=== PATIENT | male | born 1960 | race Caucasian/White ===

== ENCOUNTER 2017-01-08 21:44 | Emergency (ER) | payer OTHER ==
[~2017-01-08] VITALS: Ht 188 cm; Wt 127.5 kg
[~2017-01-08 21:44] MED LIST: ACET1TAB33 PO; ALBU8.5H3 IH; AMOX1TAB61 PO; AZIT250T6 PO; CYCL10TA2 PO; HYDR-79 PO; IBUP800T PO; PRED-220 PO; PRED50TA PO
--- NOTE | 2017-01-08 22:32 | PHYS DOC ---
General Chief Complaint: FLANK PAIN Stated Complaint: LFT FLANK PAIN Time Seen by MD: 21:54 Source: patient Exam Limitations: no limitations Problems: History of Present Illness Initial Comments "I was watching TV sitting on my bed, I slid down and felt pain right here." Pt is 56/M to ED c/o left abdominal pain. Pt states tonight he slid from sitting to lying on his bed, felt twinge/pain just under left anterior costal border. Now no pain at rest but pt c/o severe pain with movement. No falls/trauma/sob/n/v/d, no prearrival treatment. Pt states he doesn't think he can work tomorrow ([employer]) requests note. No other c /o. Timing/Duration: 1-3 hours Severity: severe Modifying Factors: worse with movement, improves with rest Associated Symptoms: other Allergies: Coded Allergies: No Known Drug Allergies (Unverified , 03/20/14) Past Medical History Medical History: COPD Surgical History: appendectomy, other Family History Significant Family History: no pertinent family hx Social History Smoker: quit greater than 1 year Alcohol: none Drugs: none Review of Systems Constitutional: denies chills, denies fever, denies malaise Respiratory: denies cough, denies shortness of breath Cardiovascular: denies chest pain, denies palpitations Gastrointestinal: abdominal paindenies constipation, denies diarrhea, denies nausea, denies vomiting Genitourinary: denies dysuria, denies frequency, denies hematuria Musculoskeletal: denies back pain, denies joint swelling, muscle pain muscle stiffnessdenies neck pain Psychiatric/Neurological: denies headache, denies numbness, denies paresthesia Physical Exam General Appearance: mild distress, obese Ear, Nose, Throat: hearing grossly normal, normal ENT inspection Neck: non-tender, supple Respiratory: normal breath sounds, no respiratory distress Cardiovascular: normal peripheral pulses, regular rate, rhythm Gastrointestinal: soft (ND, point tenderness in musculature just inferior to L ant costal border. TTP resolves when muscle shortened/at rest, sx exacerbated when pt activates abdominal mm as if doing sit up. 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 Pt expressed agreement/ understanding. Departure Time of Disposition: 22:29 Disposition: 01 HOME, SELF-CARE Diagnosis: abdominal muscle strain Condition: GOOD Patient Instructions: Muscle Strain, [id number], RICE - Routine Care for Injuries, [id number] Additional Instructions: Off work tomorrow if needed. RICE, see handout. OTC ibuprofen for baseline pain. A tylenol #3 start pack dispensed to you in ED, take 1-2 every 6 hours with food for severe pain. Rx: cyclobenzaprine Follow up with your doctor in 1-2 weeks if not better. Return to ED with new or changing symptoms. DAINA ROONEY DO Jan 08, 2017 22:31
[2017-01-08] MEDS ORDERED: CYCL10TA2 PO (22:33)
[2017-01-08 22:59] VITALS: BP 157/90
[2017-01-08] MEDS ORDERED: ACETAMINOPHEN/CODEINE 300/30MG 4TABLET STARTPACK. PO ONE (23:00)
[2017-01-08] MEDS ORDERED: MORPHINE SULFATE 10 MG/ML SYRINGE. SQ ONE (23:00)
[2017-01-08] MEDS ORDERED: ORPHENADRINE CITRATE 60 MG/2 ML VIAL. IM ONE (23:00)
== END 2017-01-08 22:59 | disposition home or self-care (01) ==
LOC: ER 21:48
DX: S39.011A Strain of muscle, fascia and tendon of abdomen, initial encounter (principal); J44.9 Chronic obstructive pulmonary disease, unspecified; Z90.49 Acquired absence of other specified parts of digestive tract; X58.XXXA Exposure to other specified factors, initial encounter; Y93.89 Activity, other specified; Y99.8 Other external cause status; Y92.89 Other specified places as the place of occurrence of the external cause
CPT/HCPCS: 96372; 99284; J2270; J2360

== ENCOUNTER 2017-10-18 19:05 | Inpatient (IN) | payer OTHER ==
[~2017-10-18] VITALS: Ht 188 cm; Wt 120.3 kg
[~2017-10-18 19:05] MED LIST changes: -ALBU8.5H3 IH; +ALBU8.5H8 IH; +CYCL-331 PO; -CYCL10TA2 PO; -IBUP800T PO; +IBUP800T19 PO
[2017-10-18] MEDS ORDERED: IV NORMAL SALINE 1,000ML 1,000 ML IV SCH (19:42)
--- NOTE | 2017-10-18 19:48 | PHYS DOC ---
Past History Past Medical History: COPD Past Surgical History: No Surgical History Smoking: Non-smoker Alcohol Use: None Drug Use: None Adult General Chief Complaint Chief Complaint: COUGH HPI HPI Patient is a 57 year old male who presents with complaint of cough and sore throat. Patient states his symptoms started 2 days ago. Patient states that he has also noticed worsening shortness of breath especially with exertion. Patient states that he is feeling tightness through his chest but denies any pain. Patient states his discomfort is in his throat. Patient also states he feels very dehydrated and is having a headache. The patient has history of COPD but does not take any medications at home. Patient does not have a primary physician at this time. Patient states that he has been feeling very weak and has been having to stop after walking short distances around his house due to shortness of breath and weakness. 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 Review of Systems Review of Systems Constitutional: Fever, chills and malaise[] Eyes: Denies change in visual acuity, redness, or eye pain [] HENT: Nasal congestion, sore throat[] Respiratory: Cough, shortness of breath[] Cardiovascular: Denies chest pain or edema[] GI: Denies abdominal pain, nausea, vomiting, bloody stools or diarrhea [] : Denies dysuria or hematuria [] Musculoskeletal: Denies back pain or joint pain [] Integument: Denies rash or skin lesions [] Neurologic: Headache, denies focal weakness or sensory changes [] All other systems were reviewed and found to be within normal limits, except as documented in this note. Allergies Allergies Allergies Coded Allergies Type Severity Reaction Last Updated Verified No Known Drug Allergies 03/20/14 No Physical Exam Physical Exam Constitutional: Alert, afebrile, appears in moderate discomfort. [] HENT: Normocephalic, atraumatic, bilateral external ears normal, oropharynx mildly erythematous, no oral exudates, nose normal. [] Eyes: PERRLA, EOMI, conjunctiva normal, no discharge. [] Neck: Normal range of motion, no tenderness, supple, no stridor. [] Cardiovascular: Tachycardia, regular rhythm, no murmur [] Lungs & Thorax: Mild to moderate restriction of air movement bilaterally, occasional rhonchi, no rales or wheezes[] Abdomen: Bowel sounds normal, soft, no tenderness, no masses, no pulsatile masses. [] Skin: Warm, dry, no erythema, no rash. [] Back: No tenderness, no CVA tenderness. [] Extremities: No tenderness, no cyanosis, no clubbing, ROM intact, no edema. [] Neurologic: Alert and oriented X 3, normal motor function, normal sensory function, no focal deficits noted. [] Current Patient Data Vital Signs Vital Signs Date Time Temp Pulse Resp B/P (MAP) Pulse Ox O2 Delivery O2 Flow Rate FiO2 10/18/17 19:06 99.1 95 22 94 Room Air EKG EKG Interpreted by me: Heart rate 104, sinus tachycardia, normal intervals, normal axis, no acute ST/T-wave abnormalities present[] Radiology/Procedures Radiology/Procedures One view AP chest x-ray interpreted by me: No stridor, no effusions, normal cardiac silhouette[] Course & Med Decision Making Course & Med Decision Making Pertinent Labs and Imaging studies reviewed. (See chart for details) Patient was found to be hypoxic, as patient would desat to 87% while he was talking in long sentences. Patient started on supplemental oxygen and patient was given DuoNeb breathing treatment and IV Solu-Medrol. Patient was found to be positive for strep pharyngitis and was administered Bicillin LA for treatment. Patient also found to be positive for influenza B and was started on Tamiflu. Due to hypoxia from COPD exacerbation likely due to influenza, the patient will require admission to the hospital for further treatment. I spoke with Dr. Sanford who accepted care patient in hospital. Dragon Disclaimer Dragon Disclaimer This electronic medical record was generated, in whole or in part, using a voice recognition dictation system. Departure Departure: Impression: Primary Impression: COPD exacerbation Additional Impressions: Hypoxia Strep pharyngitis Influenza B Disposition: ADMITTED INPATIENT Admitting Physician: Stevie Sanford Condition: STABLE Referrals: PCP,NO (PCP) Problem Qualifiers MARY GROVER MD Oct 18, 2017 19:48
[2017-10-18] MEDS ORDERED: IPRATRPIUM/ALBUTEROL 0.5/2.5MG 3 ML NEBU. NEB ONE (20:00)
[2017-10-18] MEDS ORDERED: methylPREDNISolone SOD SUCC PF 125 MG/2 ML VIAL. IV ONE (20:00)
[2017-10-18 20:08] LABS: INFLUENZA A PATIENT NEGATIVE (NEGATIVE); INFLUENZA B PATIENT POSITIVE (NEGATIVE)
[2017-10-18] MEDS ORDERED: PENICILLIN G BENZATHINE LA 1,200,000 UNIT/2 ML DISP.SYRIN. IM ONE (20:15)
[2017-10-18 20:40] LABS: BASO % 0 % (0-3); EOS % 0 % (0-3); HEMATOCRIT 44.8 % (39.0-53.0); HEMOGLOBIN 15.3 g/dL (13.0-17.5); LYMPH # 1.3 x10^3/uL (1.0-4.8); LYMPH % 13 % (24-48); MEAN CORPUSCULAR HEMOGLOBIN 29 pg (25-35); MEAN CORPUSCULAR HGB CONC 34 g/dL (31-37); MEAN CORPUSCULAR VOLUME 85 fL (79-100); MONO # 0.9 x10^3/uL (0.0-1.1); MONO % 9 % (0-9); NEUT # 7.6 x10^3uL (1.8-7.7); NEUT % 77 % (31-73); PLATELET COUNT 191 x10^3/uL (140-400); RED BLOOD COUNT 5.29 x10^6/uL (4.30-5.70); RED CELL DISTRIBUTION WIDTH 13.7 % (11.5-14.5); WHITE BLOOD COUNT 9.8 x10^3/uL (4.0-11.0)
[2017-10-18] MEDS ORDERED: OSELTAMIVIR 75 MG CAPSULE PO ONE (20:45)
[2017-10-18 21:17] LABS: ALBUMIN 3.7 g/dL (3.4-5.0); ALBUMIN/GLOBULIN RATIO 0.9 (1.0-1.7); CALCIUM 8.7 mg/dL (8.5-10.1); CREATININE 1.1 mg/dL (0.7-1.3); GFR 69.2; POTASSIUM 3.8 mmol/L (3.5-5.1); TOTAL BILIRUBIN 0.4 mg/dL (0.2-1.0); TOTAL PROTEIN 7.6 g/dL (6.4-8.2)
[2017-10-18] MEDS ORDERED: ACETAMINOPHEN 325 MG TABLET PO PRN (21:45)
[2017-10-18] MEDS ORDERED: ONDANSETRON PF 4 MG/2 ML VIAL. IV PRN (21:45)
[2017-10-18] MEDS ORDERED: OSELTAMIVIR 75 MG CAPSULE PO SCH (22:00)
[2017-10-18 22:50] VITALS: BP 117/66
[2017-10-19] VITALS (8 sets, daily range): BP systolic 125–144; BP diastolic 58–71
[2017-10-19] MEDS: IV NORMAL SALINE 1,000ML 1,000 ML IV SCH ×3 (01:02→12:54)
[2017-10-19] MEDS: methylPREDNISolone SOD SUCC PF 125 MG/2 ML VIAL. IV SCH ×4 (01:02→20:37)
[2017-10-19] MEDS ORDERED: IPRATRPIUM/ALBUTEROL 0.5/2.5MG 3 ML NEBU. ONE (05:09)
[2017-10-19] MEDS: IPRATRPIUM/ALBUTEROL 0.5/2.5MG 3 ML NEBU. NEB SCH ×4 (06:12→22:27)
--- NOTE | 2017-10-19 06:15 | EKG ---
[address] [address] Test Date: 2017-10-18 Test Time: 20:00:45 Pat Name: BARTOLO BOLANOS Department: Room: 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
[2017-10-19 06:27] LABS: BASO % 0 % (0-3); EOS % 0 % (0-3); HEMATOCRIT 43.7 % (39.0-53.0); HEMOGLOBIN 14.8 g/dL (13.0-17.5); LYMPH % 11 % (24-48); MEAN CORPUSCULAR HEMOGLOBIN 29 pg (25-35); MEAN CORPUSCULAR HGB CONC 34 g/dL (31-37); MEAN CORPUSCULAR VOLUME 85 fL (79-100); MONO # 0.2 x10^3/uL (0.0-1.1); MONO % 2 % (0-9); NEUT % 87 % (31-73); PLATELET COUNT 199 x10^3/uL (140-400); RED BLOOD COUNT 5.13 x10^6/uL (4.30-5.70); RED CELL DISTRIBUTION WIDTH 13.7 % (11.5-14.5); WHITE BLOOD COUNT 9.3 x10^3/uL (4.0-11.0)
[2017-10-19 06:41] LABS: CALCIUM 8.7 mg/dL (8.5-10.1); CREATININE 1.2 mg/dL (0.7-1.3); GFR 62.6
--- NOTE | 2017-10-19 07:40 | RAD ---
Single view chest 10/18/2017 Clinical indication: Shortness of breath. Comparison: Chest 09/05/2016. Findings: Cardiac silhouette is unremarkable. There are mild bilateral central perihilar opacities. No pleural effusion, pneumothorax or focal consolidation. Impression: Central perihilar opacities may represent viral etiologies or bronchitis.
[2017-10-19] MEDS: OSELTAMIVIR 75 MG CAPSULE PO SCH ×2 (08:31→20:37)
--- NOTE | 2017-10-19 15:47 | HP ---
ADMIT DATE: 10/18/2017 HISTORY OF PRESENT ILLNESS: The patient is a 57-year-old male patient who came yesterday to the Emergency Room complaining of cough with sore throat, started about 2 days prior to arrival to the Emergency Room. Noted that he has worsening shortness of breath, especially with exertion, stated that he is feeling tightness throughout his chest, but denied any pain. He has marked discomfort in his throat, especially when swallowing. Feels hydrated and is having headache. He has had a history of COPD, but does not take any medication for at home. He was extensively evaluated in the Emergency Room and was found to be positive for influenza A, as well as streptococcal sore throat. He was given benzathine penicillin intramuscular 1 million 200,000 units for streptococcal sore throat and was started on Tamiflu 75 mg twice a day as well as IV steroids, pain medication, IV fluid, was admitted for further evaluation and treatment. PAST MEDICAL HISTORY: Significant for COPD as well as gastroesophageal reflux disease. PAST SURGICAL HISTORY: Significant for a pilonidal cyst is resection and appendectomy. ALLERGIES: He has no known drug allergies. MEDICATIONS: He is currently on omeprazole 20 mg once a day. FAMILY HISTORY: He has 8 brothers and 5 sisters. His oldest brother of heart attack as well as his mother in her 50s. His father at the age of 85 because of Parkinson's disease and advanced Alzheimer disease. SOCIAL HISTORY: He lives with his significant other. Quit smoking about 20 years ago. He drinks alcohol occasionally. 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 REVIEW OF SYSTEMS: The patient denied any blurring of vision, cataract, glaucoma or macular degeneration. Denied any at earache, tinnitus or sensorineural deafness. Denied any nosebleeds, stuffy nose or postnasal drip. Did complain of sore throat, difficulty swallowing. Has 1 episode of nausea and vomiting, but denied any diarrhea or constipation. Denied any hematemesis, melena or hematochezia. Denied any dysuria, frequency or hematuria. Denied any chest pain, shortness of breath, orthopnea or paroxysmal nocturnal dyspnea. PHYSICAL EXAMINATION: GENERAL: When I examined him, he looked well and was clearly in no apparent respiratory distress, pale, but no jaundice, cyanosis, or thyromegaly. No jugular venous distention. No limb edema. VITAL SIGNS: His heart rate was 95, blood pressure was 117/66, temperature was 99.6, respiratory rate 20, and oxygen saturation was 91% on room air. HEAD: Showed normocephalic, atraumatic. NECK: Supple. HEART: Showed normal first and second heart sounds. No gallop, rub or murmur. CHEST: Clear to auscultation. No crepitation or rhonchi. ABDOMEN: Distended, soft, nontender. No guarding or rigidity. No organomegaly. Hernial orifice intact. Bowel sounds normal. NEUROLOGIC: He was awake, alert, responding appropriately. All cranial nerves intact. EXTREMITIES: He moves extremities without difficulty, ambulates without assistance or assistive devices. LABORATORY DATA: On admission showed a serum sodium 138, potassium 3.8, chloride 103, bicarbonate 26, anion gap of 9, BUN 13, creatinine 1.1, estimated GFR was 69 mL per minute. His glucose was 115, calcium was 8.7. Total bilirubin, AST, ALT, alkaline phosphatase were normal. His total protein was 7.6, albumin was 3.7. His white cell count was 9800; hemoglobin 15; hematocrit 44; MCV 85 and platelet count of 191,000. His influenza A was negative. Influenza B was positive and rapid group A streptococcus test was positive. IMPRESSION: In summary, this is a 57-year-old male patient who was admitted with Streptococcus pharyngitis, influenza B with exacerbation and acute hypoxic respiratory failure. PLAN: The patient was given benzathine penicillin 1.2 million units intramuscularly once and was started on Tamiflu 75 mg twice a day. Continue to be on DuoNeb 3 mL 4 times a day, methylprednisolone 60 mg every 6 hours together with Tylenol and ondansetron. He is on IV fluid at 150 mL per hour. NATALIO MARTIN MD DR: RADHA/ester JOB#: [id number] / [id number]
--- NOTE | 2017-10-20 01:04 | PN ---
DATE: 10/19/2017 SUBJECTIVE: The patient is resting slightly propped up in bed, in no apparent distress. He continued to have sore throat, although the pain is much improved. He has also some cough, but mostly dry with some chest tightness, although much improved than yesterday. OBJECTIVE: GENERAL: On examining him, he looked well and was clearly in no apparent respiratory distress, pale, but no jaundice, cyanosis or thyromegaly. No jugular venous distention. No limb edema. VITAL SIGNS: His heart rate was 69, blood pressure 126/65, temperature was 99.2, respiratory rate 20 and oxygen saturation was 91% on room air. HEAD, EYES, EARS, NOSE AND THROAT: Showed normocephalic, atraumatic. NECK: Supple. HEART: Showed normal first and second sounds. No gallop, rub or murmur. CHEST: Clear to auscultation. No crepitation or rhonchi. ABDOMEN: Distended, soft, nontender. NEUROLOGIC: He was awake, alert, responding appropriately. Cranial nerves intact. He moves extremities without difficulty. His intake over the last 24 hours was 3780, output was 600. LABORATORY DATA: As of this morning showed that his influenza A was negative, B was positive and group A streptococcus rapid test was positive. His serum sodium was 137, potassium 4, chloride 102, bicarbonate 25, anion gap of 10, BUN 13, creatinine 1.2, estimated GFR was 63 mL per minute. Glucose was 101. Calcium was 8.7. His white cell count was 9300, hemoglobin 14.8, hematocrit of 44, MCV 85 and platelet count of 199,000. ASSESSMENT: 1. Acute hypoxic respiratory failure. 2. Chronic obstructive pulmonary disease exacerbation. 3. Influenza B. 4. Streptococcal sore throat. PLAN: My plan is to cut down his steroids as well as IV fluid. Repeat all his labs tomorrow. NATALIO MARTIN MD DR: RADHA/ester JOB#: [id number] / [id number]
[2017-10-20 03:00] VITALS: BP 86/48
[2017-10-20] MEDS: IV NORMAL SALINE 1,000ML 1,000 ML IV SCH (03:13)
[2017-10-20] MEDS: IPRATRPIUM/ALBUTEROL 0.5/2.5MG 3 ML NEBU. NEB SCH (06:08)
[2017-10-20 06:56] LABS: ALBUMIN/GLOBULIN RATIO 0.8 (1.0-1.7); CALCIUM 8.6 mg/dL (8.5-10.1); GFR 77.3; POTASSIUM 3.9 mmol/L (3.5-5.1); TOTAL BILIRUBIN 0.2 mg/dL (0.2-1.0); TOTAL PROTEIN 6.9 g/dL (6.4-8.2)
[2017-10-20 07:00] VITALS: BP 106/52
[2017-10-20 07:08] LABS: HEMATOCRIT 44.7 % (39.0-53.0); HEMOGLOBIN 14.8 g/dL (13.0-17.5); RED BLOOD COUNT 5.19 x10^6/uL (4.30-5.70); RED CELL DISTRIBUTION WIDTH 13.5 % (11.5-14.5); WHITE BLOOD COUNT 17.8 x10^3/uL (4.0-11.0)
[2017-10-20] MEDS: OSELTAMIVIR 75 MG CAPSULE PO SCH ×2 (08:49→20:41)
[2017-10-20] MEDS: methylPREDNISolone SOD SUCC PF 125 MG/2 ML VIAL. IV SCH ×2 (08:50→23:08)
[2017-10-20 11:04] VITALS: BP 119/54
--- NOTE | 2017-10-20 15:53 | RAD ---
2 view chest 10/20/2017 Clinical indication: Worsening cough. Comparison: 10/18/2017 chest. Findings: Cardiac and mediastinal silhouettes are stable. Multiple leads overlie the patient. Development of patchy opacities in the right lower lobe. No pleural effusion or pneumothorax. Impression: Development of right lower lobe patchy opacities, concerning for pneumonia. Follow-up 2 view chest view chest is recommended to assess for resolution.
[2017-10-20] MEDS: VANCOMYCIN PER PHARMACY MC PRN (16:59)
[2017-10-20 17:24] LABS: HEMATOCRIT 44.6 % (39.0-53.0); HEMOGLOBIN 14.7 g/dL (13.0-17.5); RED BLOOD COUNT 5.23 x10^6/uL (4.30-5.70); RED CELL DISTRIBUTION WIDTH 13.9 % (11.5-14.5); WHITE BLOOD COUNT 16.7 x10^3/uL (4.0-11.0)
[2017-10-20 17:50] LABS: ALBUMIN 2.9 g/dL (3.4-5.0); ALBUMIN/GLOBULIN RATIO 0.7 (1.0-1.7); CALCIUM 8.6 mg/dL (8.5-10.1); GFR 77.3; POTASSIUM 4.2 mmol/L (3.5-5.1); TOTAL BILIRUBIN 0.1 mg/dL (0.2-1.0); TOTAL PROTEIN 6.8 g/dL (6.4-8.2)
[2017-10-20 18:50] VITALS: BP 128/70
[2017-10-20] MEDS: PIPERACILLIN/TAZOBACTAM 3.375 GM in IV NORMAL SALINE 50ML 50 ML IV SCH (19:34)
[2017-10-20] MEDS ORDERED: VANCOMYCIN 2 GM in IV NORMAL SALINE 500ML 500 ML IV ONE (20:00)
[2017-10-20 23:13] VITALS: BP 140/80
[2017-10-21] MEDS: PIPERACILLIN/TAZOBACTAM 3.375 GM in IV NORMAL SALINE 50ML 50 ML IV SCH ×3 (02:30→18:20)
[2017-10-21 05:06] VITALS: BP_SYST 133; BP_SYST 142; BP_DIAS 71; BP_DIAS 88
[2017-10-21] MEDS ORDERED: IPRATRPIUM/ALBUTEROL 0.5/2.5MG 3 ML NEBU. ONE (05:40)
[2017-10-21] MEDS: IPRATRPIUM/ALBUTEROL 0.5/2.5MG 3 ML NEBU. NEB SCH ×4 (05:59→21:02)
[2017-10-21 06:33] LABS: BASO % 0 % (0-3); EOS % 0 % (0-3); HEMATOCRIT 43.1 % (39.0-53.0); HEMOGLOBIN 14.6 g/dL (13.0-17.5); LYMPH # 1.2 x10^3/uL (1.0-4.8); LYMPH % 9 % (24-48); MEAN CORPUSCULAR HEMOGLOBIN 29 pg (25-35); MEAN CORPUSCULAR HGB CONC 34 g/dL (31-37); MEAN CORPUSCULAR VOLUME 85 fL (79-100); MONO # 0.8 x10^3/uL (0.0-1.1); MONO % 5 % (0-9); NEUT # 12.4 x10^3uL (1.8-7.7); NEUT % 86 % (31-73); PLATELET COUNT 218 x10^3/uL (140-400); RED BLOOD COUNT 5.09 x10^6/uL (4.30-5.70); RED CELL DISTRIBUTION WIDTH 13.6 % (11.5-14.5); WHITE BLOOD COUNT 14.5 x10^3/uL (4.0-11.0)
[2017-10-21 06:34] LABS: ALBUMIN 2.8 g/dL (3.4-5.0); ALBUMIN/GLOBULIN RATIO 0.7 (1.0-1.7); CALCIUM 8.5 mg/dL (8.5-10.1); CREATININE 0.9 mg/dL (0.7-1.3); GFR 87.3; TOTAL BILIRUBIN 0.3 mg/dL (0.2-1.0); TOTAL PROTEIN 6.7 g/dL (6.4-8.2)
[2017-10-21] MEDS: VANCOMYCIN 1.75 GM in IV NORMAL SALINE 500ML 500 ML IV SCH ×2 (07:41→20:44)
[2017-10-21] MEDS: OSELTAMIVIR 75 MG CAPSULE PO SCH ×2 (09:52→20:44)
[2017-10-21] MEDS: methylPREDNISolone SOD SUCC PF 125 MG/2 ML VIAL. IV SCH (09:52)
[2017-10-21 11:10] VITALS: BP 115/60
--- NOTE | 2017-10-21 12:35 | RAD ---
EXAM: Chest, single view. HISTORY: PICC placement. COMPARISON: 10/20/2017. FINDINGS: A frontal view of the chest is obtained. There is a right PICC with the tip in the superior right atrium. There is no pneumothorax. There is no pleural effusion. The heart is normal in size. The recently demonstrated right lower lobe opacity suggesting infiltrate is no longer seen. IMPRESSION: 1. Right PICC with the tip in the right atrium. 2. Suspected resolution of right lower lobe infiltrate.
--- NOTE | 2017-10-21 12:46 | PN ---
DATE: 10/20/2017 SUBJECTIVE: The patient is resting, slightly propped up in bed, complaining of recurrent bouts of cough with yellowish sputum. White cell count has dramatically risen to 17.8 and we did a chest x-ray which showed the development of right lower lobe patchy opacities concerning for pneumonitis and we did start him on a healthcare-associated pneumonia protocol for post-influenza versus healthcare-associated pneumonia. PHYSICAL EXAMINATION: GENERAL: When I saw him this afternoon, there is no pallor, jaundice or cyanosis, thyromegaly. No jugular vein distention. No compression edema. VITAL SIGNS: His heart rate was 56, blood pressure 119/54, temperature was 97.8, respiratory rate 16, and oxygen saturation was 93% on 3 liters of oxygen by nasal cannula. HEAD, EYES, EARS, NOSE AND THROAT: Showed normocephalic, atraumatic. NECK: Supple. HEART: Showed normal first and second heart sounds with no gallop, rub or murmur. CHEST: Shows central trachea, equally reduced expansion, reduced air entry, vesicular breath sounds with crepitation mostly in the right side posteriorly. I could not really appreciate any rhonchi. ABDOMEN: Distended, soft, nontender. No guarding or rigidity. No organomegaly. Hernial orifice intact. Bowel sounds normal. NEUROLOGIC: He was awake, alert, responding appropriately. Cranial nerves intact. He moves extremities without difficulty. He ambulates without assistance or assistive devices. Her intake over the last 24 hours was 5400, output was 2100. LABORATORY DATA: Showed a white cell count 17,800, hemoglobin 14.8, hematocrit 44, MCV 86 and platelet count 196,000. His chemistry showed a serum sodium 140, potassium 3.9, chloride 104, bicarbonate 25, anion gap of 11. BUN 15, creatinine 1, estimated GFR was 77 mL per minute. His glucose was 163, calcium was 8.6. Total bilirubin, AST, ALT, alkaline phosphatase were normal. Total protein was 6.9, albumin 3. ASSESSMENT: 1. Acute hypoxic respiratory failure. 2. Chronic obstructive pulmonary disease exacerbation. 3. Influenza B. 4. Streptococcal sore throat. 5. Healthcare-associated pneumonia. PLAN: To place a PICC line and start him on IV Zosyn, vancomycin, and Levaquin. Continue with Tamiflu. NATALIO MARTIN MD DR: Barry JOB#: [id number] / [id number]
[2017-10-21 16:37] VITALS: BP 129/70
[2017-10-21 19:32] VITALS: BP 122/70
[2017-10-21] MEDS: LACTOBACILLUS RHAMNOSUS GG 1 CAPSULE. PO SCH (20:44)
[2017-10-21] MEDS ORDERED: MELATONIN 3 MG TABLET PO PRN (23:15)
[2017-10-21 23:21] VITALS: BP 121/71
[2017-10-22] MEDS: PIPERACILLIN/TAZOBACTAM 3.375 GM in IV NORMAL SALINE 50ML 50 ML IV SCH ×3 (02:33→19:54)
[2017-10-22] MEDS: IPRATRPIUM/ALBUTEROL 0.5/2.5MG 3 ML NEBU. NEB SCH ×4 (05:21→21:58)
[2017-10-22 05:59] LABS: HEMATOCRIT 43.5 % (39.0-53.0); HEMOGLOBIN 14.5 g/dL (13.0-17.5); RED BLOOD COUNT 5.09 x10^6/uL (4.30-5.70); RED CELL DISTRIBUTION WIDTH 13.7 % (11.5-14.5); WHITE BLOOD COUNT 11.3 x10^3/uL (4.0-11.0)
[2017-10-22 06:06] VITALS: BP 122/69
[2017-10-22 06:22] LABS: ALBUMIN 2.7 g/dL (3.4-5.0); ALBUMIN/GLOBULIN RATIO 0.8 (1.0-1.7); CALCIUM 8.3 mg/dL (8.5-10.1); CREATININE 0.9 mg/dL (0.7-1.3); GFR 87.3; POTASSIUM 3.3 mmol/L (3.5-5.1); TOTAL BILIRUBIN 0.5 mg/dL (0.2-1.0); TOTAL PROTEIN 6.3 g/dL (6.4-8.2)
[2017-10-22 08:06] LABS: VANC TR 12.1 mcg/mL (10.0-20.0)
[2017-10-22] MEDS: VANCOMYCIN 1.75 GM in IV NORMAL SALINE 500ML 500 ML IV SCH (08:12)
[2017-10-22] MEDS: LACTOBACILLUS RHAMNOSUS GG 1 CAPSULE. PO SCH ×2 (09:11→19:54)
[2017-10-22] MEDS: OSELTAMIVIR 75 MG CAPSULE PO SCH ×2 (09:11→19:54)
[2017-10-22] MEDS: methylPREDNISolone SOD SUCC PF 40 MG/ML VIAL. IV SCH (09:11)
[2017-10-22] MEDS: VANCOMYCIN PER PHARMACY MC PRN (09:19)
[2017-10-22 11:01] VITALS: BP 123/69
--- NOTE | 2017-10-22 11:04 | PN ---
DATE: 10/21/2017 SUBJECTIVE: The patient is sitting on the edge of the bed, in no apparent distress. He continued to complain of shortness of breath, cough with yellowish sputum. Denies any fever, chills or rigors. Nursing staff stated that his oxygen saturation is about 94% on room air; however, it drops down, especially when he is asleep to around 90. PHYSICAL EXAMINATION: GENERAL: When I examined him, he looked pale. No jaundice, cyanosis, or thyromegaly. No jugular venous distention. No limb edema. VITAL SIGNS: His heart rate was 47, blood pressure 115/60, temperature was 97.8, respiratory rate was 19, and oxygen saturation was 95% on room air. HEAD, EYES, EARS, NOSE AND THROAT: Normocephalic, atraumatic. NECK: Supple. HEART: Showed normal first and second heart sounds. No gallop, rub, or murmur. CHEST: Showed central trachea, equal bilateral expansion and air entry, vesicular breath sounds with crepitation mostly on the right side posteriorly. I could not appreciate any rhonchi. ABDOMEN: Distended, soft, nontender. No guarding or rigidity. No organomegaly. Hernial orifices were intact. Bowel sounds normal. NEUROLOGIC: He was awake, alert, responding appropriately. All cranial nerves are intact. He moves extremities without difficulty. ASSESSMENT AND PLAN: In summary, this is a 57-year-old male patient who was admitted with: 1. Influenza A who has also had acute hypoxic respiratory failure. 2. Chronic obstructive pulmonary disease exacerbation. 3. Streptococcal sore throat. 4. Healthcare-associated pneumonia. So far, all her cultures are negative and my plan is to continue with triple antibiotic and evaluate him tomorrow. We will check also his lab work tomorrow and if continued to be afebrile, we will plan to discharge home. I will cut down his also steroids and continue with nebulized albuterol and Atrovent. NATALIO MARTIN MD DR: RADHA/ester JOB#: [id number] / [id number]
[2017-10-22 15:56] VITALS: BP 127/69
[2017-10-22 20:15] VITALS: BP 135/68
[2017-10-22] MEDS ORDERED: diphenhydrAMINE HCL 50 MG CAPSULE PO PRN (20:15)
[2017-10-22] MEDS ORDERED: diphenhydrAMINE HCL 25 MG CAPSULE PO ONE (20:17)
[2017-10-23 00:32] VITALS: BP 126/67
[2017-10-23] MEDS: PIPERACILLIN/TAZOBACTAM 3.375 GM in IV NORMAL SALINE 50ML 50 ML IV SCH (02:00)
--- NOTE | 2017-10-23 03:32 | PN ---
DATE: 10/22/2017 SUBJECTIVE: The patient is resting slightly propped up in bed, in no apparent respiratory distress. He continued to complain of cough with shortness of breath and yellowish sputum, although he is generally feeling much better, has managed to sleep a few hours last night and today. PHYSICAL EXAMINATION: GENERAL: When I examined him, he looked pale, but no jaundice, cyanosis, or thyromegaly. No jugular venous distention. No limb edema. VITAL SIGNS: Her heart rate was 58, blood pressure was 123/69, temperature was 97.6, respiratory rate was 18 and oxygen saturation was 95%. HEAD, EYES, EARS, NOSE AND THROAT: Showed normocephalic, atraumatic. NECK: Supple. HEART: Showed normal first and second sounds. No gallop, rub or murmur. CHEST: Shows central trachea, equal bilateral expansion, air entry, sounds with crepitation mostly in the right side posteriorly. I could not appreciate any rhonchi. ABDOMEN: Distended, soft, nontender. NEUROLOGIC: He is awake, alert, responding appropriately. Cranial nerves are intact. He moves extremities without difficulty. He ambulates without assistance or assistive devices. Intake was 1750, output was 1200. LABORATORY DATA: Showed a white cell count of 11,300, hemoglobin 14, hematocrit 43, MCV 85, and platelet count of 178,000. His chemistry showed a serum sodium 141, potassium 3.3, chloride 106, bicarb 26, anion gap of 9, BUN 14, creatinine 0.9, estimated GFR was 87 mL per minute. Glucose 106, calcium was 8.3. ____ alkaline phosphatase normal. AST, ALT slightly elevated. His total protein was 6.3, albumin 2.7. His vancomycin trough level was within therapeutic range. His influenza A was negative, influenza B was positive and group ____ streptococcus was positive. So far all his cultures are negative. My plan is to discontinue vancomycin, continue with the Zosyn and levofloxacin, and hopefully switch him to Augmentin tomorrow and can be discharged home. ASSESSMENT: 1. Influenza A. 2. Acute hypoxic respiratory failure. 3. Chronic obstructive pulmonary disease exacerbation. 4. Streptococcal sore throat. 5. Healthcare-associated pneumonia. PLAN: To discontinue vancomycin. Continue with Zosyn and levofloxacin and hopefully discharge him tomorrow on oral Augmentin. NATALIO MARTIN MD DR: RADHA/ester JOB#: [id number] / [id number]
[2017-10-23 06:06] VITALS: BP 127/78
[2017-10-23] MEDS: IPRATRPIUM/ALBUTEROL 0.5/2.5MG 3 ML NEBU. NEB SCH (06:51)
[2017-10-23] MEDS ORDERED: AMOX1TAB61 PO (08:51)
[2017-10-23] MEDS ORDERED: PRED-220 PO (08:51)
[2017-10-23] MEDS ORDERED: ALBU8.5H8 IH (08:51)
[2017-10-23] MEDS ORDERED: OSEL75CA PO (08:55)
[2017-10-23] MEDS: LACTOBACILLUS RHAMNOSUS GG 1 CAPSULE. PO SCH (09:00)
[2017-10-23] MEDS: OSELTAMIVIR 75 MG CAPSULE PO SCH (09:00)
[2017-10-23] MEDS: methylPREDNISolone SOD SUCC PF 40 MG/ML VIAL. IV SCH (09:01)
[2017-10-23 10:43] VITALS: BP 120/68
--- NOTE | 2017-10-23 16:28 | PDOC3 ---
Discharge Summary Visit Information Date of Admission: Oct 18, 2017 Date of Discharge: Oct 23, 2017 Final Diagnosis Problems Medical Problems: (1) COPD exacerbation Status: Acute (2) Hypoxia Status: Acute (3) Influenza B Status: Acute (4) Strep pharyngitis Status: Acute . Influenza A. 2. Acute hypoxic respiratory failure. 3. Chronic obstructive pulmonary disease exacerbation. 4. Streptococcal sore throat. 5. Healthcare-associated pneumonia. 6. hypokalemia 7. Problems: Brief Hospital Course Allergies Allergies Coded Allergies Type Severity Reaction Last Updated Verified No Known Drug Allergies 03/20/14 No Vital Signs Vital Signs Date Time Temp Pulse Resp B/P (MAP) Pulse Ox O2 Delivery O2 Flow Rate FiO2 10/23/17 10:43 97.6 53 22 120/68 (85) 94 Room Air 10/22/17 08:00 3.0 Lab Results Laboratory Tests Test 10/22/17 05:00 10/22/17 05:50 10/22/17 07:30 Sodium Level 141 mmol/L (136-145) Potassium Level 3.3 mmol/L (3.5-5.1) Chloride Level 106 mmol/L (98-107) Carbon Dioxide Level 26 mmol/L (21-32) Anion Gap 9 (6-14) Blood Urea Nitrogen 14 mg/dL (8-26) Creatinine 0.9 mg/dL (0.7-1.3) Estimated GFR (Cockcroft-Gault) 87.3 BUN/Creatinine Ratio 16 (6-20) Glucose Level 106 mg/dL (70-99) Calcium Level 8.3 mg/dL (8.5-10.1) Total Bilirubin 0.5 mg/dL (0.2-1.0) Aspartate Amino Transf (AST/SGOT) 69 U/L (15-37) Alanine Aminotransferase (ALT/SGPT) 115 U/L (16-63) Alkaline Phosphatase 50 U/L (46-116) Total Protein 6.3 g/dL (6.4-8.2) Albumin 2.7 g/dL (3.4-5.0) Albumin/Globulin Ratio 0.8 (1.0-1.7) White Blood Count 11.3 x10^3/uL (4.0-11.0) Red Blood Count 5.09 x10^6/uL (4.30-5.70) Hemoglobin 14.5 g/dL (13.0-17.5) Hematocrit 43.5 % (39.0-53.0) Mean Corpuscular Volume 85 fL (79-100) Mean Corpuscular Hemoglobin 29 pg (25-35) Mean Corpuscular Hemoglobin Concent 33 g/dL (31-37) Red Cell Distribution Width 13.7 % (11.5-14.5) Platelet Count 178 x10^3/uL (140-400) Vancomycin Level Trough 12.1 mcg/mL (10.0-20.0) Vancomycin Last Dose Date 10/21/2017 Vancomycin Last Dose Time 2000 Brief Hospital Course Mr. Hernández is a 57 old [sex] who presented with HISTORY OF PRESENT ILLNESS: The patient is a 57-year-old male patient who came yesterday to the Emergency Room complaining of cough with sore throat, started about 2 days prior to arrival to the Emergency Room. Noted that he has worsening shortness of breath, especially with exertion, stated that he is feeling tightness throughout his chest, but denied any pain. He has marked discomfort in his throat, especially when swallowing. Feels hydrated and is having headache. He has had a history of COPD, but does not take any medication for at home. He was extensively evaluated in the Emergency Room and was found to be positive for influenza A, as well as streptococcal sore throat. He was given benzathine penicillin intramuscular 1 million 200,000 units for streptococcal sore throat and was started on Tamiflu 75 mg twice a day as well as IV steroids, pain medication, IV fluid, was admitted for further evaluation. He did well and recovered nicely on the rigimen he was prescribed. Discharge Information Condition at Discharge: Improved, Stable Disposition/Orders: D/C to Home Dischare Medications Current Medications Sodium Chloride 1,000 ml @ 1,000 mls/hr Q1H IV Last administered on 10/18/17at 20:11; Start 10/18/17 at 19:42; Stop 10/18/17 at 20:41; Status DC Albuterol/ Ipratropium (Duoneb) 6 ml 1X ONCE NEB Last administered on at 20:04; Start 10/18/17 at 20:00; Stop 10/18/17 at 20:01; Status DC Methylprednisolone Sodium Succinate (SOLU-Medrol 125MG VIAL) 125 mg 1X ONCE IV Last administered on 10/18/17at 20:11; Start 10/18/17 at 20:00; Stop 10/18/17 at 20:01; Status DC Penicillin G Benzathine (Bicillin L-A) 1,200,000 unit 1X ONCE IM Last administered on 10/18/17at 20:11; Start 10/18/17 at 20:15; Stop 10/18/17 at 20:16 ; Status DC Oseltamivir Phosphate (Tamiflu) 75 mg 1X ONCE PO Last administered on at 20:48; Start 10/18/17 at 20:45; Stop 10/18/17 at 20:46; Status DC Ondansetron HCl (Zofran) 4 mg PRN Q4HRS PRN IV NAUSEA/VOMITING; Start 10/18/17 at 21:45; Stop 10/19/17 at 21:44; Status DC Fentanyl Citrate (Fentanyl 2ml Vial) 50 mcg PRN Q2HR PRN IV SEVERE PAIN Last administered on 10/19/17at 01:16; Start 10/18/17 at 21:45; Stop 10/19/17 at 21:44 ; Status DC Sodium Chloride 1,000 ml @ 75 mls/hr [id number] IV Last administered on at 03:13; Start 10/18/17 at 21:32; Stop 10/19/17 at 21:31; Status DC Acetaminophen (Tylenol) 650 mg PRN Q4HRS PRN PO FEVER; Start 10/18/17 at 21:45 ; Stop 10/19/17 at 21:44; Status DC Albuterol/ Ipratropium (Duoneb) 3 ml RTQID NEB Last administered on 10/20/17at 06:08; Start 10/19/17 at 08:00; Stop 10/20/17 at 07:59; Status DC Oseltamivir Phosphate (Tamiflu) 75 mg BID PO ; Start 10/18/17 at 22:00; Stop at 21:59; Status Cancel Methylprednisolone Sodium Succinate (SOLU-Medrol 125MG VIAL) 60 mg Q6HRS IV Last administered on 10/19/17at 12:50; Start 10/19/17 at 00:00; Stop 10/19/17 at 15:19; Status DC Oseltamivir Phosphate (Tamiflu) 75 mg BID PO Last administered on 10/23/17at 09: 00; Start 10/19/17 at 09:00; Stop 10/23/17 at 12:27; Status DC Albuterol/ Ipratropium (Duoneb) 3 ml STK-MED ONCE .ROUTE ; Start 10/19/17 at 05: 09; Stop 10/19/17 at 05:10; Status DC Methylprednisolone Sodium Succinate (SOLU-Medrol 125MG VIAL) 60 mg Q12H IV Last administered on 10/21/17at 09:52; Start 10/19/17 at 22:00; Stop 10/21/17 at 14:59; Status DC Piperacillin Sod/ Tazobactam Sod 3.375 gm/Sodium Chloride 50 ml @ 100 mls/hr Q8H IV Last administered on 10/23/17at 02:00; Start 10/20/17 at 18:00; Stop at 12:27; Status DC Levofloxacin/ Dextrose 150 ml @ 150 mls/hr Q24H IV Last administered on at 17:24; Start 10/20/17 at 17:00; Stop 10/23/17 at 12:27; Status DC Vancomycin HCl (Vanco Per Pharmacy) 1 each PRN DAILY PRN MC SEE COMMENTS Last administered on 10/22/17at 09:19; Start 10/20/17 at 16:30; Stop 10/22/17 at 14:29 ; Status DC Vancomycin HCl 2 gm/Sodium Chloride 500 ml @ 250 mls/hr 1X ONCE IV Last administered on 10/20/17at 20:42; Start 10/20/17 at 20:00; Stop 10/20/17 at 21:59 ; Status DC Vancomycin HCl 1.75 gm/Sodium Chloride 500 ml @ 250 mls/hr Q12H IV Last administered on 10/22/17at 08:12; Start 10/21/17 at 08:00; Stop 10/22/17 at 14:27 ; Status DC Vancomycin HCl 1 each 1X ONCE MC Last administered on 10/22/17at 07:30; Start 10/22/17 at 07:30; Stop 10/22/17 at 07:31; Status DC Albuterol/ Ipratropium (Duoneb) 3 ml RTQID NEB Last administered on 10/23/17at 06:51; Start 10/21/17 at 08:00; Stop 10/23/17 at 12:27; Status DC Albuterol/ Ipratropium (Duoneb) 3 ml STK-MED ONCE .ROUTE ; Start 10/21/17 at 05: 40; Stop 10/21/17 at 05:41; Status DC Lactobacillus Rhamnosus (Culturelle) 1 cap BID PO Last administered on at 09:00; Start 10/21/17 at 21:00; Stop 10/23/17 at 12:27; Status DC Methylprednisolone Sodium Succinate (SOLU-Medrol 40MG VIAL) 40 mg DAILY IV Last administered on 10/23/17at 09:01; Start 10/22/17 at 09:00; Stop 10/23/17 at 12:27; Status DC Melatonin 3 mg PRN QHS PRN PO INSOMNIA Last administered on 10/21/17at 23:23; Start 10/21/17 at 23:15; Stop 10/23/17 at 12:27; Status DC Diphenhydramine HCl (Benadryl) 50 mg PRN QHS PRN PO INSOMNIA Last administered on 10/22/17at 20:57; Start 10/22/17 at 20:15; Stop 10/23/17 at 12:27; Status DC Diphenhydramine HCl (Benadryl) 25 mg STK-MED ONCE PO ; Start 10/22/17 at 20:17; Stop 10/22/17 at 20:18; Status DC Active Scripts Active Tamiflu (Oseltamivir Phosphate) 75 Mg Capsule 75 Mg PO BID 1 Days YOU WILL TAKE THE LAST TAMIFLU THIS EVENING FOR A TOTAL OF FIVE DAYS. Prednisone 10 Mg Tablet 30 Mg PO DAILY 5 Days Proair Hfa Inhaler (Albuterol Sulfate) 8.5 Gm Hfa.aer.ad 2 Puff IH Q4HRS PRN 30 Days Augmentin 875-125 Tablet (Amoxicillin/Potassium Clav) 1 Each Tablet 1 Tab PO BID 7 Days Cyclobenzaprine Hcl 10 Mg Tablet 1 Tab PO TID Cyclobenzaprine Hcl 10 Mg Tablet 10 Mg PO TID PRN PRN Hydrocodone-Ibuprofen 7.5-200 (Hydrocodone/Ibuprofen) 1 Each Tablet 1 Tab PO PRN Q6HRS PRN Prednisone 50 Mg Tablet 50 Mg PO DAILY 5 Days Ibuprofen 800 Mg Tablet 1 Tab PO TID PRN take with food Acetaminophen-Cod #3 Tablet (Acetaminophen With Codeine) 1 Each Tablet 1 Tab PO Q4-6HRS PRN Patient Instructions Patient Instuctions patient instructions typed out by myself on [facility] discharge. LESLYE ABRAHAM DO Oct 23, 2017 16:28
== END 2017-10-23 12:27 | disposition home or self-care (01) | DRG 193 ==
LOC: ER 19:05 → ICU 21:22 → UNDOADMIN 21:22 → 1 SOUTH 10-21 15:16
PROVIDERS: ADMIT Internal Medicine; ATTEND Internal Medicine
PROC: 02H633Z Insertion of Infusion Device into Right Atrium, Percutaneous Approach (ICD-10-PCS; principal; 2017-10-20)
DX: J10.00 Influenza due to other identified influenza virus with unspecified type of pneumonia (principal); J96.01 Acute respiratory failure with hypoxia; J44.0 Chronic obstructive pulmonary disease with (acute) lower respiratory infection; J44.1 Chronic obstructive pulmonary disease with (acute) exacerbation; E87.6 Hypokalemia; K21.9 Gastro-esophageal reflux disease without esophagitis; G47.00 Insomnia, unspecified; Y95 Nosocomial condition; Z82.0 Family history of epilepsy and other diseases of the nervous system; Z82.49 Family history of ischemic heart disease and other diseases of the circulatory system; Z87.891 Personal history of nicotine dependence; Z90.49 Acquired absence of other specified parts of digestive tract; Z79.899 Other long term (current) drug therapy
CPT/HCPCS: 36415; 71045; 71046; 80048; 80053; 80202; 82553; 83880; 84484; 85025; 85027; 87641; 87804; 87880; 93005; 94640; 96361; 96372; 96374; J0561; J1956; J2543; J2920; J2930; J3010; J3370; J7040; J7620; Q0163; 99285-25; J7030

== ENCOUNTER 2019-03-19 18:12 | Emergency (ER) | payer SELFPAY ==
[~2019-03-19 18:12] MED LIST changes: +ALBU2.5V8 IH; -ALBU8.5H8 IH; +HYDR-1179 PO; -HYDR-79 PO; +OSEL75CA PO
[2019-03-19 18:23] VITALS: BP 154/82
--- NOTE | 2019-03-19 19:01 | RAD ---
PA and lateral chest. HISTORY: Cough, congestion, fatigue PA and lateral views were taken of the chest. Lungs are free of infiltrates. Heart is normal in size. There is no pleural effusion. IMPRESSION: 1. No acute chest disease. Electronically signed by: Kota Tavarez MD (03/19/2019 6:58 PM) [facility]
--- NOTE | 2019-03-19 19:09 | PHYS DOC ---
Past History Past Medical History: COPD Past Surgical History: No Surgical History Smoking: Non-smoker Alcohol Use: None Drug Use: None Adult General Chief Complaint Chief Complaint: COUGH HPI HPI 58-year-old male presents with cough and congestion for about the last 3 weeks. Patient does knees had nasal congestion and a minimally productive cough for almost 3 weeks. Patient does have a diagnosis of COPD but is not on any daily medications. He denies fever or chills. He does have a sick contact in his grandson. He has no other complaints this time. Review of Systems Review of Systems Constitutional: Denies fever or chills [] Eyes: Denies change in visual acuity, redness, or eye pain [] HENT: Denies nasal congestion or sore throat [] Respiratory: Cough without shortness of breath [] Cardiovascular: No additional information not addressed in HPI [] GI: Denies abdominal pain, nausea, vomiting, bloody stools or diarrhea [] : Denies dysuria or hematuria [] Musculoskeletal: Denies back pain or joint pain [] Integument: Denies rash or skin lesions [] Neurologic: Headache. Denies focal weakness or sensory changes [] Endocrine: Denies polyuria or polydipsia [] All other systems were reviewed and found to be within normal limits, except as documented in this note. Allergies Allergies Allergies Coded Allergies Type Severity Reaction Last Updated Verified No Known Drug Allergies 03/20/14 No Physical Exam Physical Exam Constitutional: Well developed, well nourished, no acute distress, non-toxic appearance. [] HENT: Normocephalic, atraumatic, bilateral external ears normal, oropharynx moist, no oral exudates, nose congested. [] Eyes: PERRLA, EOMI, conjunctiva normal, no discharge. [] Neck: Normal range of motion, no tenderness, supple, no stridor. [] Cardiovascular:Heart rate regular rhythm, no murmur [] Lungs & Thorax: Bilateral breath sounds diminished but clear to auscultation [] Abdomen: Bowel sounds normal, soft, no tenderness, no masses, no pulsatile masses. [] Skin: Warm, dry, no erythema, no rash. [] Back: No tenderness, no CVA tenderness. [] Extremities: No tenderness, no cyanosis, no clubbing, ROM intact, no edema. [] Neurologic: Alert and oriented X 3, normal motor function, normal sensory function, no focal deficits noted. [] Psychologic: Affect normal, judgement normal, mood normal. [] Current Patient Data Vital Signs Vital Signs Date Time Temp Pulse Resp B/P (MAP) Pulse Ox O2 Delivery O2 Flow Rate FiO2 03/19/19 18:23 97.9 72 24 97 Room Air EKG EKG [] Radiology/Procedures Radiology/Procedures [] Impressions: PA and lateral chest. HISTORY: Cough, congestion, fatigue PA and lateral views were taken of the chest. Lungs are free of infiltrates. Heart is normal in size. There is no pleural effusion. IMPRESSION: 1. No acute chest disease. Electronically signed by: Reynaldo Peralta MD (03/19/2019 6:58 PM) [facility] DICTATED AND SIGNED BY: REYNALDO PERALTA MD DATE: 03/19/191857 CC: JORGE TOVAR DO; PCP,NO ~ Course & Med Decision Making Course & Med Decision Making Pertinent Labs and Imaging studies reviewed. (See chart for details) The patient's chest x-ray is negative for pneumonia. I do not hear any wheezing on exam. He has a headache at this time for which I will give him Tylenol and ibuprofen in the ED. Given the duration his illness and his COPD history, I will treat him with steroids for 3 days. [] Dragon Disclaimer Dragon Disclaimer This electronic medical record was generated, in whole or in part, using a voice recognition dictation system. Departure Departure: Impression: Primary Impression: URI with cough and congestion Disposition: 01 HOME, SELF-CARE Condition: STABLE Referrals: PCP,NO (PCP) Patient Instructions: Upper Respiratory Infection, Adult, [id number] Scripts Prednisone (PREDNISONE) 10 Mg Tablet 50 MG PO DAILY for possible COPD flare for 3 Days, #15 TAB Prov: JORGE TOVAR DO 03/19/19 JORGE TOVAR DO Mar 19, 2019 19:09
[2019-03-19] MEDS ORDERED: ACETAMINOPHEN 325 MG TABLET PO ONE (19:15)
[2019-03-19] MEDS ORDERED: IBUPROFEN 600 MG TABLET. PO ONE (19:15)
[2019-03-19] MEDS ORDERED: PRED-220 PO (19:18)
[2019-03-19] MEDS ORDERED: predniSONE 10 MG TABLET PO ONE (19:30)
== END 2019-03-19 19:27 | disposition home or self-care (01) ==
LOC: ER 18:12
DX: J06.9 Acute upper respiratory infection, unspecified (principal); J44.9 Chronic obstructive pulmonary disease, unspecified
CPT/HCPCS: 71046; 99284; J7512

== ENCOUNTER 2019-05-27 17:27 | Emergency (ER) | payer SELFPAY ==
[~2019-05-27] VITALS: Ht 188 cm; Wt 122.5 kg
[2019-05-27] MEDS ORDERED: IV NORMAL SALINE 1,000ML 1,000 ML IV SCH (17:43)
--- NOTE | 2019-05-27 18:00 | PHYS DOC ---
Past History Past Medical History: COPD, GERD (MONA GUZMAN Jr. DO) Past Surgical History: No Surgical History (MONA GUZMAN Jr., DO) Smoking: Non-smoker Alcohol Use: None Drug Use: None (MONA GUZMAN Jr., DO) Adult General Chief Complaint Chief Complaint: WEAKNESS/GENERALIZED HPI HPI Patient is a 58-year-old male who presents with complaint of generalized weakness and dry mouth. Patient states that symptoms started earlier today after he had gotten up from sleep. Patient states that he has a history of syncope in the past and was supposed to drive into work but he was afraid that he might pass out while driving. He denies any chest pain or shortness of breath. He denies any nausea or vomiting. He does complain of being very thirsty. He states that he did not drink any fluids before coming in because he wanted to make sure that we got an accurate temperature on him. Patient is not aware of any all eviating or aggravating factors.[] (MONA GUZMAN Jr., DO) Review of Systems Review of Systems Constitutional: Denies fever or chills [] HENT: Complains of dry mouth[] Respiratory: Denies cough or shortness of breath [] Cardiovascular: No additional information not addressed in HPI [] GI: Denies abdominal pain, nausea, vomiting or diarrhea [] Neurologic: Denies headache, focal weakness or sensory changes [] All other systems were reviewed and found to be within normal limits, except as documented in this note. (MONA GUZMAN Jr., DO) Allergies Allergies Allergies Coded Allergies Type Severity Reaction Last Updated Verified No Known Drug Allergies 03/20/14 No (MONA GUZMAN Jr., DO) Physical Exam Physical Exam Constitutional: Well developed, well nourished, no acute distress, non-toxic appearance. [] HENT: Normocephalic, atraumatic, bilateral external ears normal, oropharynx dry, no oral exudates, nose normal. [] Eyes: PERRLA, EOMI, conjunctiva normal, no discharge. [] Neck: Normal range of motion, no tenderness, supple. [] Cardiovascular: Mildly tachycardic rate with regular rhythm.[] Lungs & Thorax: Bilateral breath sounds clear to auscultation [] Abdomen: Bowel sounds normal, soft, no tenderness. [] Skin: Warm, dry, no erythema, no rash. [] Extremities: No tenderness, no cyanosis, no clubbing, ROM intact. [] Neurologic: Alert and oriented X 3, no focal deficits noted. [] (MONA GUZMAN Jr., DO) Current Patient Data Vital Signs Vital Signs Date Time Temp Pulse Resp B/P (MAP) Pulse Ox O2 Delivery O2 Flow Rate FiO2 05/27/19 17:41 99.5 99 21 94 Room Air (MONA GUZMAN Jr., DO) EKG EKG EKG demonstrates a normal sinus rhythm with rate of 84. There are no ST segment abnormalities noted on this exam. (MONA GUZMAN Jr., DO) Radiology/Procedures Radiology/Procedures [] (MONA GUZMAN Jr., DO) Course & Med Decision Making Course & Med Decision Making Pertinent Labs and Imaging studies reviewed. (See chart for details) [] (MONA GUZMAN Jr., DO) Course & Med Decision Making i saw and evaluated the patient. he feels weak tells me same as when he had pneumonia. minimal cough known hx of copd feels feverish he tihnks cxr noted, suspect right lower lobe infiltrate ceftriaxone/doxy in er, levaquin rx f/u with pmd once better return prec reviewd vitals seem appropriate for outpt mgmt. (KELLE CHAVEZ MD) Dragon Disclaimer Dragon Disclaimer This electronic medical record was generated, in whole or in part, using a voice recognition dictation system. (MONA GUZMAN Jr., DO) Departure Departure: Impression: Primary Impression: Generalized weakness Additional Impression: Pneumonia Disposition: 01 HOME, SELF-CARE Condition: STABLE Referrals: PCP,NO (PCP) Scripts Levofloxacin (LEVOFLOXACIN) 750 Mg Tablet 1 TAB PO DAILY for pneumonia, #7 TAB Prov: KELLE CHAVEZ MD 05/27/19 Problem Qualifiers MONA GUZMAN Jr., DO May 27, 2019 18:00 KELLE CHAVEZ MD May 27, 2019 20:13
[2019-05-27 18:07] LABS: BASO # 0.1 x10^3/uL (0.0-0.2); BASO % 1 % (0-3); EOS % 0 % (0-3); HEMATOCRIT 46.4 % (39.0-53.0); HEMOGLOBIN 15.5 g/dL (13.0-17.5); LYMPH # 0.7 x10^3/uL (1.0-4.8); LYMPH % 5 % (24-48); MEAN CORPUSCULAR HEMOGLOBIN 28 pg (25-35); MEAN CORPUSCULAR HGB CONC 33 g/dL (31-37); MEAN CORPUSCULAR VOLUME 84 fL (79-100); MONO # 0.6 x10^3/uL (0.0-1.1); MONO % 4 % (0-9); NEUT # 11.6 x10^3uL (1.8-7.7); NEUT % 90 % (31-73); PLATELET COUNT 311 x10^3/uL (140-400); RED CELL DISTRIBUTION WIDTH 14.1 % (11.5-14.5); WHITE BLOOD COUNT 12.9 x10^3/uL (4.0-11.0)
[2019-05-27 18:32] LABS: ALBUMIN 3.8 g/dL (3.4-5.0); CALCIUM 9.1 mg/dL (8.5-10.1); CREATININE 1.1 mg/dL (0.7-1.3); DIRECT BILIRUBIN 0.1 mg/dL (0.0-0.2); MAGNESIUM 1.9 mg/dL (1.8-2.4); POTASSIUM 4.6 mmol/L (3.5-5.1); TOTAL BILIRUBIN 0.4 mg/dL (0.2-1.0); TOTAL PROTEIN 7.7 g/dL (6.4-8.2)
[2019-05-27 19:58] LABS: CLARITY,URINE CLEAR; COLOR,URINE STRAW
[2019-05-27 19:59] LABS: BACTERIA,URINE 0 /HPF (0-FEW); BILIRUBIN,URINE NEG (NEG); GLUCOSE,URINE NEG (NEG); NITRITE,URINE NEG (NEG); RBC,URINE 0 /HPF (0-2); UROBILINOGEN,URINE 0.2 mg/dL (0.2 mg/dL); WBC,URINE OCC /HPF (0-4)
--- NOTE | 2019-05-27 19:59 | RAD ---
CHEST PA LATERAL History: Cough, fever Comparison: March 19, 2019 Findings: 2 lateral and single PA views of the chest are submitted. There is some very minimal patchy airspace opacity of the right lung base. There is no dependent pleural fluid or pneumothorax. Pericardial cardiac silhouette is stable, slightly prominent. Impression: 1. There is very minimal patchy right base opacity which could be due to mild atelectasis or infiltrate. Electronically signed by: Meri Adhikari MD (05/27/2019 7:56 PM) [facility]
[2019-05-27] MEDS ORDERED: cefTRIAXone SODIUM 1 GM VIAL ONE (20:08)
[2019-05-27] MEDS ORDERED: LEVO750T5 PO (20:08)
[2019-05-27] MEDS ORDERED: IV NORMAL SALINE 50ML 50 ML ONE (20:08)
[2019-05-27] MEDS ORDERED: DOXYCYCLINE HYCLATE 100 MG TABLET PO ONE (20:15)
[2019-05-27 20:40] VITALS: BP 120/65
--- NOTE | 2019-05-28 06:34 | EKG ---
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
== END 2019-05-27 20:40 | disposition home or self-care (01) ==
LOC: ER 17:27
DX: J18.9 Pneumonia, unspecified organism (principal); R53.1 Weakness; J44.9 Chronic obstructive pulmonary disease, unspecified; K21.9 Gastro-esophageal reflux disease without esophagitis
CPT/HCPCS: 36415; 71046; 80048; 80076; 81001; 83735; 84443; 84484; 85025; 93005; 96365; 99285; J0696; J7030

== ENCOUNTER 2019-07-30 18:13 | Inpatient (IN) | payer SELFPAY ==
[~2019-07-30] VITALS: Ht 188 cm; Wt 128.8 kg
[~2019-07-30 18:13] MED LIST changes: +LEVO750T5 PO
--- NOTE | 2019-07-30 18:49 | PHYS DOC ---
Past History Past Medical History: COPD, GERD Past Surgical History: Appendectomy, Other Additional Past Surgical Histo: lower back for cyst Smoking: Non-smoker Alcohol Use: Rarely Drug Use: None Adult General Chief Complaint Chief Complaint: FEVER HPI HPI Patient is a 58 year old male who presents with complaint of fever, chills, and fatigue. Patient notes that his symptoms started suddenly today at approximate ly 10:30 AM. States that he started feeling very sick to his stomach. States he has had 2 episodes of vomiting. Denies any diarrhea or abdominal pain. States that he feels very achy all over and quite fatigued. Has had minimal cough and denies any shortness of breath. Has not taken any medications today for symptoms. Does have history of COPD but states he has not felt short of breath and has not had any wheezing associated with the symptoms. Has not received flu vaccine at this time. Review of Systems Review of Systems Constitutional: Fever, chills[] Eyes: Denies change in visual acuity, redness, or eye pain [] HENT: Denies nasal congestion or sore throat [] Respiratory: Denies cough or shortness of breath [] Cardiovascular: Denies chest pain or edema[] GI: Nausea, vomiting, denies abdominal pain, bloody stools or diarrhea [] : Denies dysuria or hematuria [] Musculoskeletal: Myalgias, denies back pain or joint pain [] Integument: Denies rash or skin lesions [] Neurologic: Headache, denies focal weakness or sensory changes [] All other systems were reviewed and found to be within normal limits, except as documented in this note. Current Medications Current Medications Current Medications Medications (Trade) Dose Ordered Sig/Lalo Start Time Stop Time Status Last Admin Dose Admin Ondansetron HCl (Zofran) 4 mg 1X ONCE 07/30/19 18:45 07/30/19 18:46 UNV Sodium Chloride 2,460 ml @ 2,460 mls/hr Q1H 07/30/19 18:40 UNV Allergies Allergies Allergies Coded Allergies Type Severity Reaction Last Updated Verified No Known Drug Allergies 07/30/19 No Physical Exam Physical Exam Constitutional: Alert, febrile, appears ill. [] HENT: Normocephalic, atraumatic, bilateral external ears normal, oropharynx moist, no oral exudates, nose normal. [] Eyes: PERRLA, EOMI, conjunctiva normal, no discharge. [] Neck: Normal range of motion, no tenderness, supple, no stridor. [] Cardiovascular: Tachycardia, normal rhythm, no murmur [] Lungs & Thorax: Bilateral breath sounds clear to auscultation [] Abdomen: Bowel sounds normal, soft, no tenderness, no masses, no pulsatile masses. [] Skin: Warm, dry, no erythema, no rash. [] Back: No tenderness, no CVA tenderness. [] Extremities: No tenderness, no cyanosis, no clubbing, ROM intact, no edema. [] Neurologic: Alert and oriented X 3, normal motor function, normal sensory function, no focal deficits noted. [] Current Patient Data Vital Signs Vital Signs Date Time Temp Pulse Resp B/P (MAP) Pulse Ox O2 Delivery O2 Flow Rate FiO2 07/30/19 18:24 101.0 96 20 94 Room Air Lab Results Laboratory Tests Test 07/30/19 18:50 07/30/19 18:55 Urine Collection Type Void Urine Color Yellow Urine Clarity Clear Urine pH 6.0 Urine Specific Salome 1.015 Urine Protein Neg Urine Glucose (UA) Neg mg/dL Urine Ketones (Stick) Neg mg/dL Urine Blood Neg Urine Nitrite Neg Urine Bilirubin Neg Urine Urobilinogen Dipstick 0.2 mg/dL Urine Leukocyte Esterase Neg Urine RBC 0 /HPF Urine WBC Rare /HPF Urine Squamous Epithelial Cells None /LPF Urine Bacteria 0 /HPF Urine Mucus Slight /LPF Influenza Type A (Rapid) Negative Influenza Type B (Rapid) Negative White Blood Count 17.4 x10^3/uL Red Blood Count 5.33 x10^6/uL Hemoglobin 14.9 g/dL Hematocrit 45.6 % Mean Corpuscular Volume 86 fL Mean Corpuscular Hemoglobin 28 pg Mean Corpuscular Hemoglobin Concent 33 g/dL Red Cell Distribution Width 14.2 % Platelet Count 249 x10^3/uL Neutrophils (%) (Auto) 88 % Lymphocytes (%) (Auto) 6 % Monocytes (%) (Auto) 5 % Eosinophils (%) (Auto) 0 % Basophils (%) (Auto) 1 % Neutrophils # (Auto) 15.4 x10^3uL Lymphocytes # (Auto) 1.0 x10^3/uL Monocytes # (Auto) 0.9 x10^3/uL Eosinophils # (Auto) 0.0 x10^3/uL Basophils # (Auto) 0.1 x10^3/uL Segmented Neutrophils % 69 % Band Neutrophils % 17 % Lymphocytes % 10 % Monocytes % 4 % Hypersegmented Neutrophils Present Toxic Granulation Mod Toxic Vacuolation Slight Platelet Estimate Adequate Sodium Level 136 mmol/L Potassium Level 4.0 mmol/L Chloride Level 102 mmol/L Carbon Dioxide Level 25 mmol/L Anion Gap 9 Blood Urea Nitrogen 14 mg/dL Creatinine 1.1 mg/dL Estimated GFR (Cockcroft-Gault) 69.0 BUN/Creatinine Ratio 13 Glucose Level 129 mg/dL Lactic Acid Level 2.1 mmol/L Calcium Level 9.1 mg/dL Total Bilirubin 0.5 mg/dL Aspartate Amino Transf (AST/SGOT) 18 U/L Alanine Aminotransferase (ALT/SGPT) 24 U/L Alkaline Phosphatase 74 U/L Total Protein 7.7 g/dL Albumin 3.7 g/dL Albumin/Globulin Ratio 0.9 Current Medications Medications (Trade) Dose Ordered Sig/Lalo Route PRN Reason Start Time Stop Time Status Last Admin Dose Admin Sodium Chloride 2,460 ml @ 2,460 mls/hr Q1H IV 07/30/19 18:40 07/30/19 19:02 Ondansetron HCl (Zofran) 4 mg 1X ONCE IVP 07/30/19 19:00 07/30/19 19:01 DC 07/30/19 19:03 Albuterol/ Ipratropium (Duoneb) 3 ml 1X ONCE NEB 07/30/19 20:00 07/30/19 20:01 DC 07/30/19 19:54 Methylprednisolone Sodium Succinate (SOLU-Medrol 125MG VIAL) 125 mg 1X ONCE IV 07/30/19 20:00 07/30/19 20:01 DC 07/30/19 19:54 EKG EKG Interpreted by me: Heart rate 85, sinus rhythm, normal intervals, normal axis, no acute ST/T-wave abnormalities present[] Radiology/Procedures Radiology/Procedures One view AP chest x-ray interpreted by me: Left lower lobe linear infiltrates, no effusions, normal cardiac silhouette[] Course & Med Decision Making Course & Med Decision Making Pertinent Labs and Imaging studies reviewed. (See chart for details) Patient's initial vital signs raised concern for sepsis. Patient was started on a 30 mL per kilo bolus of IV normal saline. Patient chest x-ray shows findings concerning for acute pneumonia and patient's lactic acid level was elevated at 2.1, placing patient in severe sepsis criteria. Patient's O2 sats dropped to 89% while in the emergency department. Patient administered albuterol breathing treatment and IV Solu-Medrol. Started patient on IV Levaquin. Patient will ne ed admission to the hospital for further care. I spoke with Dr. Sanford who agreed to accept care of patient in hospital. Critical care time excluding procedures: 40 minutes Dragon Disclaimer Dragon Disclaimer This electronic medical record was generated, in whole or in part, using a voice recognition dictation system. Departure Departure: Impression: Primary Impression: Severe sepsis Additional Impressions: Community acquired pneumonia COPD with acute exacerbation Disposition: ADMITTED INPATIENT Admitting Physician: Stevie Sanford Condition: GUARDED Referrals: PCP,NO (PCP) Problem Qualifiers Additional Impressions: Community acquired pneumonia Laterality: left Lung location: lower lobe of lung Qualified Codes: J18.1 - Lobar pneumonia, unspecified organism MARY GROVER MD Jul 30, 2019 18:48
[2019-07-30] MEDS ORDERED: ONDANSETRON PF 4 MG/2 ML VIAL. IVP ONE (19:00)
[2019-07-30] MEDS: IV NORMAL SALINE 1,000ML 2,460 ML IV SCH ×2 (19:02→21:44)
[2019-07-30 19:19] LABS: BASO # 0.1 x10^3/uL (0.0-0.2); BASO % 1 % (0-3); EOS % 0 % (0-3); HEMATOCRIT 45.6 % (39.0-53.0); HEMOGLOBIN 14.9 g/dL (13.0-17.5); LYMPH % 6 % (24-48); MEAN CORPUSCULAR HEMOGLOBIN 28 pg (25-35); MEAN CORPUSCULAR HGB CONC 33 g/dL (31-37); MEAN CORPUSCULAR VOLUME 86 fL (79-100); MONO # 0.9 x10^3/uL (0.0-1.1); MONO % 5 % (0-9); NEUT # 15.4 x10^3uL (1.8-7.7); NEUT % 88 % (31-73); PLATELET COUNT 249 x10^3/uL (140-400); RED BLOOD COUNT 5.33 x10^6/uL (4.30-5.70); RED CELL DISTRIBUTION WIDTH 14.2 % (11.5-14.5); WHITE BLOOD COUNT 17.4 x10^3/uL (4.0-11.0)
[2019-07-30 19:29] LABS: ALBUMIN 3.7 g/dL (3.4-5.0); ALBUMIN/GLOBULIN RATIO 0.9 (1.0-1.7); CALCIUM 9.1 mg/dL (8.5-10.1); CREATININE 1.1 mg/dL (0.7-1.3); TOTAL BILIRUBIN 0.5 mg/dL (0.2-1.0); TOTAL PROTEIN 7.7 g/dL (6.4-8.2)
[2019-07-30 19:32] LABS: BACTERIA,URINE 0 /HPF (0-FEW); BILIRUBIN,URINE NEG (NEG); CLARITY,URINE CLEAR; COLOR,URINE YELLOW; GLUCOSE,URINE NEG (NEG); NITRITE,URINE NEG (NEG); RBC,URINE 0 /HPF (0-2); UROBILINOGEN,URINE 0.2 mg/dL (0.2 mg/dL); WBC,URINE RARE /HPF (0-4)
[2019-07-30 19:44] LABS: INFLUENZA A PATIENT NEGATIVE (NEGATIVE); INFLUENZA B PATIENT NEGATIVE (NEGATIVE)
[2019-07-30 19:55] LABS: % BANDS 17 % (0-9); % LYMPHS 10 % (24-48); % MONOS 4 % (0-10); % SEGS 69 % (35-66); HYPERSEGS PRESENT; PLT ESTIMATE ADEQUATE (ADEQUATE); TOXIC GRANULATION MOD; TOXIC VACUOLATION SLIGHT
[2019-07-30] MEDS ORDERED: IPRATRPIUM/ALBUTEROL 0.5/2.5MG 3 ML NEBU. NEB ONE (20:00)
[2019-07-30] MEDS ORDERED: methylPREDNISolone SOD SUCC PF 125 MG/2 ML VIAL. IV ONE (20:00)
[2019-07-30] MEDS ORDERED: ACETAMINOPHEN 325 MG TABLET PO PRN (20:15)
[2019-07-30] MEDS ORDERED: ONDANSETRON PF 4 MG/2 ML VIAL. IV PRN (20:15)
[2019-07-30 21:18] VITALS: BP 119/67
[2019-07-30] MEDS ORDERED: FLU VAX QS 2019-20 (36MOS+)/PF 0.5 ML SYRINGE. VAX IM ONE (22:00)
--- NOTE | 2019-07-30 22:05 | RAD ---
EXAM: CHEST ONE VIEW. HISTORY: Fever, weakness. COMPARISON: 05/27/2019. FINDINGS: A frontal view of the chest is obtained. Mild interstitial opacities in the bases may indicate atelectasis, mild pulmonary edema or atypical pneumonia. There is no pneumothorax or pleural effusion. The heart is not enlarged. IMPRESSION: 1. Mild pulmonary edema versus atypical pneumonia. Electronically signed by: Scottie Kendrick MD (07/30/2019 10:02 PM) [facility]
[2019-07-30 22:21] VITALS: BP 121/74
[2019-07-30] MEDS ORDERED: RANI150C PO (22:50)
[2019-07-30] MEDS ORDERED: ACET500T68 PO (22:50)
[2019-07-30] MEDS ORDERED: IV NORMAL SALINE 1,000ML 2,460 ML IV ONE (23:00)
[2019-07-30 23:15] VITALS: BP 123/64
[2019-07-31] VITALS (13 sets, daily range): BP systolic 95–131; BP diastolic 49–70
--- NOTE | 2019-07-31 02:24 | EKG ---
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
[2019-07-31] MEDS ORDERED: IPRATRPIUM/ALBUTEROL 0.5/2.5MG 3 ML NEBU. ONE (04:58)
[2019-07-31] MEDS: IV NORMAL SALINE 1,000ML 1,000 ML IV SCH ×3 (05:25→11:03)
[2019-07-31] MEDS: methylPREDNISolone SOD SUCC PF 125 MG/2 ML VIAL. IV SCH ×3 (05:30→11:03)
[2019-07-31] MEDS: IPRATRPIUM/ALBUTEROL 0.5/2.5MG 3 ML NEBU. NEB SCH ×4 (05:31→22:02)
[2019-07-31 06:26] LABS: BASO % 0 % (0-3); EOS % 0 % (0-3); HEMOGLOBIN 14.4 g/dL (13.0-17.5); LYMPH # 1.6 x10^3/uL (1.0-4.8); LYMPH % 8 % (24-48); MEAN CORPUSCULAR HEMOGLOBIN 28 pg (25-35); MEAN CORPUSCULAR HGB CONC 33 g/dL (31-37); MEAN CORPUSCULAR VOLUME 86 fL (79-100); MONO # 0.4 x10^3/uL (0.0-1.1); MONO % 2 % (0-9); NEUT # 17.6 x10^3uL (1.8-7.7); NEUT % 90 % (31-73); PLATELET COUNT 253 x10^3/uL (140-400); RED CELL DISTRIBUTION WIDTH 13.8 % (11.5-14.5); WHITE BLOOD COUNT 19.6 x10^3/uL (4.0-11.0)
[2019-07-31 06:30] LABS: CALCIUM 8.4 mg/dL (8.5-10.1); CREATININE 1.1 mg/dL (0.7-1.3)
[2019-07-31] MEDS ORDERED: FLU VAX QS 2019-20 (36MOS+)/PF 0.5 ML SYRINGE. VAX IM ONE (09:00)
--- NOTE | 2019-07-31 14:01 | HP ---
ADMIT DATE: 07/30/2019 No dictation. NATALIO MARTIN MD DR: Barry JOB#: [id number] / [id number]
--- NOTE | 2019-07-31 14:45 | HP ---
ADMIT DATE: 07/30/2019 HISTORY OF PRESENT ILLNESS: The patient is a 58-year-old male patient, who presented to the Emergency Room with the complaint of fever, chills, fatigue. The patient stated that his symptoms started suddenly on the day of admission around 10:30, started feeling very to his stomach. States he has had 2 episodes of vomiting. Denied any diarrhea or abdominal pain. Stated that he feels very achy all over and quite fatigued and had minimal cough and denied any shortness of breath. Has not taken any medication for the symptoms. Does have a history of COPD, but states he has not felt short of breath and has not had any wheezing associated symptoms. He has not received his flu vaccine at this time. He was evaluated in the Emergency Room, was found to have leukocytosis with a white cell count 17,400. His chemistry was unremarkable except that his lactic acid was high at 2.1. Urinalysis was essentially unremarkable. His influenza A and B were negative and his chest x-ray showed he has mild interstitial opacities in the bases, may indicate atelectasis, mild pulmonary edema or atypical pneumonia. There is no pneumothorax or pleural effusion. The heart is not enlarged and therefore, the patient was admitted with sepsis and community-acquired pneumonia and COPD exacerbation. PAST MEDICAL HISTORY: Significant for gastroesophageal reflux disease, COPD. PAST SURGICAL HISTORY: Significant for pilonidal cyst surgery and appendectomy. ALLERGIES: He has no known drug allergies. MEDICATIONS: He is currently on medications. He is currently on [id number] proton pump inhibitor. FAMILY HISTORY: He has 3 living sisters and 5 living brothers, all older. His one sister at the age of 70 because of cancer. His father at the age of 85 because of Alzheimer disease. Mother at age of 68 because of myocardial infarction. SOCIAL HISTORY: He is twice. He has one biological daughter. He is currently living with his significant other. Quit smoking about 20 years ago. Does not drink alcohol or use any recreational drugs. 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 REVIEW OF SYSTEMS: The patient denied any blurring of vision, cataract, glaucoma or macular degeneration. Denied any earache, tinnitus or sensorineural deafness. Denied any nosebleeds, stuffy nose or postnasal drip. Denied any sore throat or sore tongue. He has nausea and vomiting twice, but denied any diarrhea. Denied any hematemesis, melena or hematochezia. Denied any dysuria, frequency or hematuria. Has mild cough. Denied any hemoptysis. Does have fever and chills. PHYSICAL EXAMINATION: GENERAL: On arrival to the Emergency Room, there is no pallor, jaundice, cyanosis or thyromegaly. No jugular venous distention nor edema. VITAL SIGNS: His heart rate was 101, blood pressure was 101/49, temperature was 96, respiratory rate 20 and oxygen saturation was 94%. HEAD, EYES, EARS, NOSE AND THROAT: Showed normocephalic, atraumatic. NECK: Supple. HEART: Showed normal first and second heart sounds with no gallop or murmur. CHEST: Clear to auscultation. No crepitation or rhonchi. ABDOMEN: Distended, soft, nontender. NEUROLOGIC: He was awake, alert, responding appropriately. All cranial nerves intact. EXTREMITIES: He moves extremities without difficulty, ambulates without assistance or assistive devices. LABORATORY DATA: On admission showed a white cell count 17,400, hemoglobin 14.9, hematocrit 45, MCV 86 and platelet count 249,000 with normal manual differential. His serum sodium 136, potassium 4, chloride 102, bicarbonate 25, anion gap of 9, BUN 14, creatinine 1.1, estimated GFR was 69 mL per minute. His glucose was 129. Lactic acid was 2.1, the calcium was 9.1. Total bilirubin, AST, ALT, alkaline phosphatase were normal. Total protein was 7.7, albumin was 3.7. Urinalysis showed the urine was yellow, clear with a pH of 6, specific gravity of 1:015. The urine was negative for protein, glucose, ketones, blood, nitrite and leukocyte esterase. There are no rbc's, rare wbc's and no bacteria. His influenza A and B were negative. His chest x-ray showed there are mild interstitial opacities in the bases of may indicate atelectasis, mild pulmonary edema or atypical pneumonia. There is no pneumothorax or pleural effusion. The heart is not enlarged. ASSESSMENT AND PLAN: The patient was admitted with a diagnosis of community-acquired pneumonia with chronic obstructive pulmonary disease exacerbation, was started on intravenous steroids as well as levofloxacin. NATALIO MARTIN MD DR: RADHA/ester JOB#: [id number] / [id number]
[2019-07-31] MEDS: methylPREDNISolone SOD SUCC PF 40 MG/ML VIAL. IV SCH (20:00)
--- NOTE | 2019-08-01 02:20 | PN ---
DATE: 07/31/2019 SUBJECTIVE: The patient is resting, slightly propped up in bed, in no apparent distress. On questioning him, he denied any further episodes of nausea and vomiting. Denied any chills, rigors, or fever. Denied any dizziness, lightheadedness, or vertigo. PHYSICAL EXAMINATION: GENERAL: When I examined him this afternoon, he was resting, slightly propped up in bed, no apparent distress. No pallor, jaundice, cyanosis or thyromegaly. No jugular venous distention. No limb edema. VITAL SIGNS: Her heart rate was 66, blood pressure was 114/63, temperature was 97.8, respiratory rate was 20 and his oxygen saturation was 94% on room air. HEAD, EYES, EARS, NOSE AND THROAT: Showed normocephalic, atraumatic. NECK: Supple. HEART: Showed normal first and second heart sounds with no gallop or murmur. CHEST: Clear to auscultation. No crepitation or rhonchi. ABDOMEN: Distended, soft, nontender. NEUROLOGIC: He was awake, alert, responding appropriately. All his cranial nerves intact. He moves extremities without difficulty, ambulates without assistance or assistive devices. His intake was 5546, output was 818. LABORATORY DATA: As of this morning, his serum sodium 139, potassium 4, chloride 104, bicarbonate 24, anion gap of 11, BUN 12, creatinine 1.1, estimated GFR was 69 mL per minute, his glucose was 195, calcium was 8.4. White cell count was 19,600, hemoglobin 14, hematocrit 44, MCV 86 and platelet count 153,000. ASSESSMENT: 1. Sepsis. 2. Community-acquired pneumonia. 3. COPD exacerbation and gastroesophageal reflux disease. PLAN: My plan is to cut down his steroids. Meanwhile, continue with IV fluid, IV antibiotic and repeat his labs again tomorrow. NATALIO MARTIN MD DR: RADHA/ester JOB#: [id number] / [id number]
[2019-08-01 04:30] VITALS: BP 126/71
[2019-08-01] MEDS: IPRATRPIUM/ALBUTEROL 0.5/2.5MG 3 ML NEBU. NEB SCH ×3 (05:44→15:19)
[2019-08-01 06:36] LABS: HEMATOCRIT 43.6 % (39.0-53.0); HEMOGLOBIN 14.3 g/dL (13.0-17.5); RED BLOOD COUNT 5.07 x10^6/uL (4.30-5.70); RED CELL DISTRIBUTION WIDTH 14.1 % (11.5-14.5); WHITE BLOOD COUNT 23.2 x10^3/uL (4.0-11.0)
[2019-08-01 06:50] LABS: CALCIUM 8.8 mg/dL (8.5-10.1); POTASSIUM 4.2 mmol/L (3.5-5.1)
[2019-08-01 08:38] VITALS: BP 119/67
[2019-08-01] MEDS: methylPREDNISolone SOD SUCC PF 40 MG/ML VIAL. IV SCH (08:44)
[2019-08-01] MEDS ORDERED: LACTOBACILLUS RHAMNOSUS GG 1 CAPSULE. PO SCH (09:00)
[2019-08-01 15:00] VITALS: BP 132/74
[2019-08-01] MEDS ORDERED: PRED20TA PO (16:31)
[2019-08-01] MEDS ORDERED: ALBU2.5V8 INH (16:31)
[2019-08-01] MEDS ORDERED: LEVO750T31 PO (16:31)
--- NOTE | 2019-08-02 00:25 | DS ---
DATE OF DISCHARGE: 08/01/2019 HOSPITAL COURSE: The patient is a 58-year-old male patient who was admitted on 07/30/2019 with worsening shortness of breath. He was extensively investigated in the Emergency Room as well as found to have elevated white cell count of 17,400, mild lactic acidosis. Urinalysis was essentially unremarkable. His influenza A and B were negative; however, his chest x-ray showed that he has mild interstitial opacities in the bases, and therefore, the patient was admitted with community-acquired pneumonia and COPD exacerbation. He was started on IV Levaquin at 750 mg IV once a day and nebulized albuterol and Atrovent together with the steroids in the form of Solu-Medrol, and he did actually very well, has been up and about. Denied any chest pain, shortness of breath, cough, phlegm or hemoptysis. PHYSICAL EXAMINATION: GENERAL: When I examined him, he looked well. No pallor, jaundice, cyanosis or thyromegaly. No jugular venous distention. No limb edema. VITAL SIGNS: His heart rate was 74, blood pressure was 132/74, temperature was 98.4, respiratory rate was 16, and oxygen saturation was 97%. HEAD, EYES, EARS, NOSE AND THROAT: Showed normocephalic, atraumatic. NECK: Supple. HEART: Showed normal first and second heart sounds. No gallop, rub or murmur. CHEST: Clear to auscultation. No crepitation or rhonchi. ABDOMEN: Distended, soft, nontender. No guarding or rigidity. No organomegaly. All hernial orifices intact. Bowel sounds normal. NEUROLOGIC: He was awake, alert, responding appropriately. All cranial nerves are intact. He moves extremities without difficulty. He ambulates without assistance or assistive devices. LABORATORY DATA: His serum sodium was 139, potassium 4.2, chloride 105, bicarbonate 25, anion gap of 9, BUN 15, creatinine 1, estimated GFR was 77 mL per minute. His glucose was 101, calcium was 8.8. So far, his blood cultures are negative. DISCHARGE MEDICATIONS: He was discharged home to continue on following medications: Albuterol sulfate 1 inhalation every 4 hours as needed, levofloxacin 750 mg p.o. daily for 5 days, prednisone 40 mg once a day for 3 days, 30 mg once a day for 3 days, 20 mg once a day for 3 days, and 10 mg once a day for 3 days. He was also discharged on Tylenol 1000 mg twice a day as needed for pain and ranitidine 150 mg p.o. daily p.r.n. for heartburn. FINAL DISCHARGE DIAGNOSES: 1. Community-acquired pneumonia. 2. Chronic obstructive pulmonary disease exacerbation. 3. Gastroesophageal reflux disease. 4. Morbid obesity. NATALIO MARTIN MD DR: RADHA/ester JOB#: [id number] / [id number]
== END 2019-08-01 18:00 | disposition home or self-care (01) | DRG 871 ==
LOC: ER 18:13 → ICU 20:04
PROVIDERS: ADMIT Internal Medicine; ATTEND Internal Medicine
DX: A41.9 Sepsis, unspecified organism (principal); J18.9 Pneumonia, unspecified organism; J44.0 Chronic obstructive pulmonary disease with (acute) lower respiratory infection; J44.1 Chronic obstructive pulmonary disease with (acute) exacerbation; E66.01 Morbid (severe) obesity due to excess calories; K21.9 Gastro-esophageal reflux disease without esophagitis; R65.20 Severe sepsis without septic shock; Z82.0 Family history of epilepsy and other diseases of the nervous system; Z82.49 Family history of ischemic heart disease and other diseases of the circulatory system; Z87.891 Personal history of nicotine dependence; Z90.49 Acquired absence of other specified parts of digestive tract; Z68.36 Body mass index [BMI] 36.0-36.9, adult
CPT/HCPCS: 36415; 71045; 80048; 80053; 81001; 83605; 85007; 85025; 85027; 87040; 87804; 90471; 90686; 93005; 94640; 94760; 96374; 96375; J1956; J2405; J2920; J2930; J7620; 99291-25; J7030

== ENCOUNTER 2019-12-04 15:43 | Emergency (ER) | payer OTHER ==
[~2019-12-04] VITALS: Ht 188 cm; Wt 122.2 kg
[~2019-12-04 15:43] MED LIST changes: +ACET500T68 PO; +ALBU2.5V8 INH; +LEVO750T31 PO; +PRED20TA PO; +RANI150C PO
[2019-12-04] MEDS ORDERED: IV NORMAL SALINE 1,000ML 1,000 ML IV SCH (16:12)
[2019-12-04] MEDS ORDERED: ACETAMINOPHEN 500 MG TABLET PO ONE (16:15)
[2019-12-04 16:29] LABS: INFLUENZA A PATIENT NEGATIVE (NEGATIVE); INFLUENZA B PATIENT NEGATIVE (NEGATIVE)
--- NOTE | 2019-12-04 16:40 | PHYS DOC ---
Past History Past Medical History: COPD, GERD, Other Additional Past Medical Histor: Sacral polydonal cyst removal/Sepsis Past Surgical History: Appendectomy, Other Additional Past Surgical Histo: lower back for cyst Smoking: Non-smoker Alcohol Use: None Drug Use: None Adult General Chief Complaint Chief Complaint: FEVER HPI HPI Patient is a 59-year-old male who presents to the emergency department for evaluation. 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 He thus came to the emergency department. He states he coughed once, but has otherwise not had a cough. He denies any pain, including myalgias, nasal congestion, sore throat, abdominal pain, chest pain, and has not had any urinary symptoms. He has a history of a pilonidal cyst removed from his sacral area in the past, which had been infected in the past, but has healed up over the past several months and is not giving him any problems, including drainage or pain, at this time. He was also hospitalized here with sepsis and pneumonia in July 2019. Select notes from his recent hospital stay have been reviewed. There are no alleviating or exacerbating factors to his symptoms otherwise. Review of Systems Review of Systems Constitutional: Denies myalgias or chills [] Eyes: Denies change in visual acuity, redness, or eye pain [] HENT: Denies nasal congestion or sore throat [] Respiratory: Denies productive cough or shortness of breath [] Cardiovascular: The patient denies any shortness of breath, chest pain, palpitations, or orthopnea [] GI: Denies abdominal pain, nausea, vomiting, bloody stools or diarrhea [] : Denies dysuria or hematuria [] Musculoskeletal: Denies back pain or joint pain [] Integument: Denies rash or skin lesions [] Neurologic: Denies headache, focal weakness or sensory changes [] Endocrine: Denies polyuria or polydipsia [] All other systems were reviewed and found to be within normal limits, except as documented in this note. Current Medications Current Medications Current Medications Medications (Trade) Dose Ordered Sig/Lalo Start Time Stop Time Status Last Admin Dose Admin Acetaminophen (Tylenol) 1,000 mg 1X ONCE 12/04/19 16:15 12/04/19 16:17 DC Sodium Chloride 1,000 ml @ 1,000 mls/hr Q1H 12/04/19 16:12 12/04/19 17:11 Allergies Allergies Allergies Coded Allergies Type Severity Reaction Last Updated Verified No Known Drug Allergies 07/30/19 No Physical Exam Physical Exam PHYSICAL EXAM: CONSTITUTIONAL: Well developed, well nourished HEAD: normocephalic, atraumatic EENT: PERRL, EOMI. Conjunctivae normal color, sclerae non-icteric; moist mucous membranes. NECK: Supple, non-tender; no meningismus. LUNGS: Lungs CTA, breathing even and unlabored. Normal air movement. HEART: Regular rate and rhythm, no murmur CHEST: No deformity; non-tender ABDOMEN: The abdomen is soft, and non-tender, no masses or bruits. EXTREM: Normal ROM; no deformity, no calf tenderness. Normal pulses palpable in all extremities. There is no pedal edema. SKIN: No rash; no diaphoresis. There is chronic appearing erythema and a healed wound on the sacral area. NEURO: Alert; normal speech and cognition; CN's grossly intact; strength grossly intact without focal deficit. BACK: No CVA TTP. Current Patient Data Vital Signs Vital Signs Date Time Temp Pulse Resp B/P (MAP) Pulse Ox O2 Delivery O2 Flow Rate FiO2 12/04/19 16:06 99.0 96 18 122/79 (93) 93 Room Air Lab Results Laboratory Tests Test 12/04/19 15:57 12/04/19 16:25 Influenza Type A (Rapid) Negative Influenza Type B (Rapid) Negative White Blood Count 8.3 x10^3/uL Red Blood Count 5.40 x10^6/uL Hemoglobin 15.7 g/dL Hematocrit 46.2 % Mean Corpuscular Volume 86 fL Mean Corpuscular Hemoglobin 29 pg Mean Corpuscular Hemoglobin Concent 34 g/dL Red Cell Distribution Width 13.7 % Platelet Count 231 x10^3/uL Neutrophils (%) (Auto) 79 % Lymphocytes (%) (Auto) 12 % Monocytes (%) (Auto) 7 % Eosinophils (%) (Auto) 1 % Basophils (%) (Auto) 1 % Neutrophils # (Auto) 6.6 x10^3uL Lymphocytes # (Auto) 1.0 x10^3/uL Monocytes # (Auto) 0.6 x10^3/uL Eosinophils # (Auto) 0.1 x10^3/uL Basophils # (Auto) 0.0 x10^3/uL Sodium Level 138 mmol/L Potassium Level 4.1 mmol/L Chloride Level 103 mmol/L Carbon Dioxide Level 26 mmol/L Anion Gap 9 Blood Urea Nitrogen 14 mg/dL Creatinine 1.0 mg/dL Estimated GFR (Cockcroft-Gault) 76.7 BUN/Creatinine Ratio 14 Glucose Level 116 mg/dL Lactic Acid Level 1.1 mmol/L Calcium Level 9.0 mg/dL Total Bilirubin 0.4 mg/dL Aspartate Amino Transf (AST/SGOT) 20 U/L Alanine Aminotransferase (ALT/SGPT) 31 U/L Alkaline Phosphatase 67 U/L Total Protein 7.5 g/dL Albumin 3.8 g/dL Albumin/Globulin Ratio 1.0 Current Medications Medications (Trade) Dose Ordered Sig/Lalo Route PRN Reason Start Time Stop Time Status Last Admin Dose Admin Sodium Chloride 1,000 ml @ 1,000 mls/hr Q1H IV 12/04/19 16:12 12/04/19 17:11 DC 12/04/19 16:43 Acetaminophen (Tylenol) 1,000 mg 1X ONCE PO 12/04/19 16:15 12/04/19 16:17 DC 12/04/19 16:44 Laboratory Tests Test 12/04/19 15:57 Influenza Type A (Rapid) Negative (NEGATIVE) Influenza Type B (Rapid) Negative (NEGATIVE) EKG EKG [] Radiology/Procedures Radiology/Procedures PROCEDURE: CHEST PA & LATERAL AP and Lateral Views of the Chest 12/04/2019 4:12 PM Indication: Fever Comparison: Chest radiograph July 30, 2019 Findings: There is no focal consolidation or infiltrate identified. The cardiomediastinal silhouette is within normal limits. There is no evidence of pneumothorax or pleural effusion. No acute osseous abnormalities are identified. Impression: No evidence of acute cardiopulmonary process. [] Course & Med Decision Making Course & Med Decision Making Pertinent Labs and Imaging studies reviewed. (See chart for details) []6 p.m.: The patient's condition remains stable at this time. His urinalysis result is pending. Assuming negative, the patient will be released home with expectant management. I discussed the use of antipyretics, the need for close follow-up and return precautions. Dragon Disclaimer Dragon Disclaimer This electronic medical record was generated, in whole or in part, using a voice recognition dictation system. Departure Departure: Impression: Primary Impression: Fever Additional Impression: Viral syndrome Disposition: HOME, SELF-CARE Condition: STABLE Referrals: PCP,NO (PCP) Patient Instructions: Fever of Unknown Origin, Fever, Adult, Viral Syndrome Problem Qualifiers CASA SOLIS MD Dec 04, 2019 16:40
[2019-12-04 16:45] LABS: BASO % 1 % (0-3); EOS # 0.1 x10^3/uL (0.0-0.7); EOS % 1 % (0-3); HEMATOCRIT 46.2 % (39.0-53.0); HEMOGLOBIN 15.7 g/dL (13.0-17.5); LYMPH % 12 % (24-48); MEAN CORPUSCULAR HEMOGLOBIN 29 pg (25-35); MEAN CORPUSCULAR HGB CONC 34 g/dL (31-37); MEAN CORPUSCULAR VOLUME 86 fL (79-100); MONO # 0.6 x10^3/uL (0.0-1.1); MONO % 7 % (0-9); NEUT # 6.6 x10^3uL (1.8-7.7); NEUT % 79 % (31-73); PLATELET COUNT 231 x10^3/uL (140-400); RED CELL DISTRIBUTION WIDTH 13.7 % (11.5-14.5); WHITE BLOOD COUNT 8.3 x10^3/uL (4.0-11.0)
[2019-12-04 16:51] LABS: GFR 76.7; POTASSIUM 4.1 mmol/L (3.5-5.1)
[2019-12-04 16:57] LABS: ALBUMIN 3.8 g/dL (3.4-5.0); TOTAL BILIRUBIN 0.4 mg/dL (0.2-1.0); TOTAL PROTEIN 7.5 g/dL (6.4-8.2)
[2019-12-04 18:01] VITALS: BP 106/74
[2019-12-04 18:02] LABS: BACTERIA,URINE 0 /HPF (0-FEW); BILIRUBIN,URINE NEG (NEG); CLARITY,URINE CLEAR; COLOR,URINE YELLOW; GLUCOSE,URINE NEG (NEG); NITRITE,URINE NEG (NEG); RBC,URINE OCC /HPF (0-2); SQUAMOUS EPITHELIAL CELL,UR FEW /LPF; UROBILINOGEN,URINE 0.2 mg/dL (0.2 mg/dL); WBC,URINE OCC /HPF (0-4)
== END 2019-12-04 18:08 | disposition home or self-care (01) ==
LOC: ER 15:43
DX: B34.9 Viral infection, unspecified (principal); J44.9 Chronic obstructive pulmonary disease, unspecified; K21.9 Gastro-esophageal reflux disease without esophagitis
CPT/HCPCS: 36415; 71046; 80053; 81001; 83605; 85025; 87040; 87804; 99284-25; J7030

== ENCOUNTER 2020-12-06 18:18 | Emergency (ER) | payer SELFPAY ==
[~2020-12-06] VITALS: Ht 188 cm; Wt 127.0 kg
[2020-12-06 21:34] LABS: CLARITY,URINE CLEAR; COLOR,URINE YELLOW
[2020-12-06 21:35] LABS: BACTERIA,URINE 0 /HPF (0-FEW); BILIRUBIN,URINE NEG (NEG); GLUCOSE,URINE 100 mg/dL (NEG); NITRITE,URINE NEG (NEG); RBC,URINE 0 /HPF (0-2); UROBILINOGEN,URINE 0.2 mg/dL (0.2 mg/dL); WBC,URINE 0 /HPF (0-4)
--- NOTE | 2020-12-06 21:55 | PHYS DOC ---
Past History Past Medical History: COPD, GERD, Other Additional Past Medical Histor: Sacral polydonal cyst removal/Sepsis (SARA SERRANO APRN) Past Surgical History: Appendectomy, Other Additional Past Surgical Histo: lower back for cyst (SARA SERRANO APRN) Smoking: Non-smoker Alcohol Use: None Drug Use: None (SARA SERRANO APRN) Adult General Chief Complaint Chief Complaint: BACK PAIN OR INJURY HPI HPI Patient is a 60-year-old male who complains of a sudden onset of low back pain with radiation into his right buttocks that started at 4 AM this morning when he got off work. 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 Patient does not recall any trauma to his back, states he may have pulled something in his back while doing direct patient care on patient such as turning them, feeding them, helping them in and out of bed. Patient reports that 6:30 in the morning he took 1300 mg of Tylenol p.o. and placed some Voltaren gel on his back with a heating pad and noticed only little relief. Patient reports his current back pain at 8/10 on a 1-10 pain scale. Patient states at onset it was a 10/10. Patient states it has been as low as a 4/10 but increases and decreases depending on his position and how much she moves. Patient denies any loss of bowel or bladder. Patient denies any numbness or tingling down his extremities other than pain at his right buttocks area. Patient denies any recent fever or chills, denies loss of taste or loss of smell, denies chest pain, shortness of breath, chest congestion or nasal congestion. Patient denies rashes of his skin. Patient states he had a flu vaccine in the fall 2019, states he recently received a second dose of COVID-19 vaccine. Patient denies any drug allergies. Patient states the only prescription medications he takes her omeprazole at home. (SARA SERRANO APRN) Review of Systems Review of Systems 14 body systems of review of systems have been reviewed. See HPI for pertinent positives and negative responses, otherwise all other systems are negative, nonpertinent or noncontributory. (SARA SERRANO APRN) Current Medications Current Medications Current Medications Medications (Trade) Dose Ordered Sig/Lalo Start Time Stop Time Status Last Admin Dose Admin Ketorolac Tromethamine (Toradol Im) 60 mg 1X ONCE 12/06/20 22:00 12/06/20 22:01 UNV Methylprednisolone Acetate (DEPO-Medrol IM) 80 mg 1X ONCE 12/06/20 22:00 12/06/20 22:01 UNV (SARA SERRANO APRN) Allergies Allergies Allergies Coded Allergies Type Severity Reaction Last Updated Verified No Known Drug Allergies 07/30/19 No (SARA SERRANO APRN) Physical Exam Physical Exam Constitutional: Well developed, well nourished, no acute distress, non-toxic appearance. [] HENT: Normocephalic, atraumatic, bilateral external ears normal, oropharynx moist, no oral exudates, nose normal. [] Eyes: PERRLA, EOMI, conjunctiva normal, no discharge. [] Neck: Normal range of motion, no tenderness, supple, no stridor. [] Cardiovascular:Heart rate regular rhythm, no murmur [] Lungs & Thorax: Bilateral breath sounds clear to auscultation [] Abdomen: Bowel sounds normal, soft, no tenderness, no masses, no pulsatile masses. [] Skin: Warm, dry, no erythema, no rash. [] Back: No tenderness, no CVA tenderness. [] Extremities: No tenderness, no cyanosis, no clubbing, ROM intact, no edema. [] Neurologic: Alert and oriented X 3, normal motor function, normal sensory function, no focal deficits noted. [] Psychologic: Affect normal, judgement normal, mood normal. [] (SARA SERRANO APRN) Current Patient Data Vital Signs Vital Signs Date Time Temp Pulse Resp B/P (MAP) Pulse Ox O2 Delivery O2 Flow Rate FiO2 12/06/20 18:57 98.3 69 20 156/90 (112) 95 Room Air Lab Results Laboratory Tests Test 12/06/20 20:37 Urine Collection Type Unknown Urine Color Yellow Urine Clarity Clear Urine pH 5.5 Urine Specific Social Circle >=1.030 Urine Protein Neg Urine Glucose (UA) 100 mg/dL Urine Ketones (Stick) Neg mg/dL Urine Blood Neg Urine Nitrite Neg Urine Bilirubin Neg Urine Urobilinogen Dipstick 0.2 mg/dL Urine Leukocyte Esterase Neg Urine RBC 0 /HPF Urine WBC 0 /HPF Urine Squamous Epithelial Cells None /LPF Urine Bacteria 0 /HPF Current Medications Medications (Trade) Dose Ordered Sig/Lalo Route PRN Reason Start Time Stop Time Status Last Admin Dose Admin Ketorolac Tromethamine (Toradol Im) 60 mg 1X ONCE IM 12/06/20 22:00 12/06/20 22:03 DC Methylprednisolone Acetate (DEPO-Medrol IM) 80 mg 1X ONCE IM 12/06/20 22:00 12/06/20 22:03 DC Laboratory Tests Test 12/06/20 20:37 Urine Collection Type Unknown Urine Color Yellow Urine Clarity Clear Urine pH 5.5 Urine Specific Social Circle >=1.030 Urine Protein Neg (NEG-TRACE) Urine Glucose (UA) 100 mg/dL (NEG) Urine Ketones (Stick) Neg mg/dL (NEG) Urine Blood Neg (NEG) Urine Nitrite Neg (NEG) Urine Bilirubin Neg (NEG) Urine Urobilinogen Dipstick 0.2 mg/dL (0.2 mg/dL) Urine Leukocyte Esterase Neg (NEG) Urine RBC 0 /HPF (0-2) Urine WBC 0 /HPF (0-4) Urine Squamous Epithelial Cells None /LPF Urine Bacteria 0 /HPF (0-FEW) (SARA SERRANO APRN) EKG EKG [] (SARA SERRANO APRN) Radiology/Procedures Radiology/Procedures [] (SARA SERRANO APRN) Heart Score C/O Chest Pain: No Risk Factors: Risk Factors: DM, Current or recent (<one month) smoker, HTN, HLP, family history of CAD, obesity. Risk Scores: Risk Factors: DM, Current or recent (<one month) smoker, HTN, HLP, family history of CAD, obesity. (SARA SERRANO APRN) Course & Med Decision Making Course & Med Decision Making Pertinent Labs and Imaging studies reviewed. (See chart for details) 60-year-old male, vital signs reviewed, presents to the emergency department with concerns of low back pain. Patient's physical examination and presentation is consistent with sciatica pain versus kidney stone. Will obtain urinalysis for urine assay to rule out blood in urine UA was negative for blood. Will treat patient with 60 mg IM Toradol, 80 mg Depo-Medrol, patient is driving and has no one to pick him up, will prescribe 10 mg p.o. Flexeril, 6 tablets of 3/325 Vicodin for pain, 600 mg Motrin, patient is to follow-up with primary care for ongoing back pain and sciatica pain. Patient gave verbal understanding of discharge home instructions, follow-up with primary care for ongoing aches and pains, return ER precautions or concerns, was discharged home without incident. Patient requested a work excuse through Monday, patient given a work excuse stating go back to work this coming Monday without restrictions. (SARA SERRANO APRN) Course & Med Decision Making Did not see or evaluate patient. Agree with HOMEOPATHIC DOCTOR's work-up and disposition per note. (MEREDITH ESTEVES MD) Dragon Disclaimer Dragon Disclaimer This electronic medical record was generated, in whole or in part, using a voice recognition dictation system. (SARA SERRANO APRN) Departure Departure: Impression: Primary Impression: Sciatica Disposition: DC HOME SELF CARE/HOMELESS Condition: GOOD Referrals: PCP,NO (PCP) Patient Instructions: Sciatica Additional Instructions: Please follow-up with your primary care doctor for ongoing aches and pains, return to the emergency department for worsening symptoms or other concerns. Take prescribed medications as directed. EMERGENCY DEPARTMENT GENERAL DISCHARGE INSTRUCTIONS Thank you for coming to [facility] (ED) today and trusting us with you care. We trust that you had a positivie experience in our Emergency Department. If you wish to speak to the department management, you may call the director at [phone]. YOUR FOLLOW UP INSTRUCTIONS ARE FOLLOWS: 1. Do you have a private Doctor? If you do not have a private doctor, please ask for a resource list of physicians or clinics that may be able to assist you with follow up care. 2. The Emergency Physician has interpreted your x-rays. The X-Ray specialist will also review them. If there is a change in the findings, you will be notified in 48 hours when at all possible. 3. A lab test or culture has been done, your results will be reviewed and you will be notified if you need a change in treatment. ADDITIONAL INSTRUCTIONS AND INFORMATION: 1. Your care today has been supervised by a physician who is specially trained in emergency care. Many problems require more than one evaluation for a complete diagnosis and treatment. We recommend that you schedule your follow up appointment as recommended to ensure complete treatment of you illness or injury. If you are unable to obtain follow up care and continue to have a problem, or if your condition worsens, we recommend that you return to the ED. 2. We are not able to safely determine your condition over the phone nor are we able to give sound medical advice over the phone. For these safety reasons, if you call for medical advice we will ask you to come to the ED for further evaluation. 3. If you have any questions regarding these discharge instructions please call the ED at [phone]. SAFETY INFORMATION: In the interest of safety, wellness, and injury prevention; we encourage you to wear your sealbelt, if you smoke; quite smoking, and we encourage family to use a protective helmet for bicycling and other sporting events that present an increased risk for head injury. IF YOUR SYMPTOMS WORSEN OR NEW SYMPTOMS DEVELOP, OR YOU HAVE CONCERNS ABOUT YOUR CONDITION; OR IF YOUR CONDITION WORSENS WHILE YOU ARE WAITING FOR YOUR FOLLOW UP APPOINTMENT; EITHER CONTACT YOUR PRIMARY CARE DOCTOR, THE PHYSICIAN WHOSE NAME AND NUMBER YOU WERE GIVEN, OR RETURN TO THE ED IMMEDIATELY. Scripts Prednisone (PREDNISONE) 20 Mg Tablet 1 TAB PO DAILY for BACK PAIN for 5 Days, #5 TAB 0 Refills Prov: SARA SERRANO APRN 12/06/20 Cyclobenzaprine Hcl (CYCLOBENZAPRINE HCL) 10 Mg Tablet 1 TAB PO TID PRN PRN for PAIN, #12 TAB 0 Refills Prov: SARA SERRANO APRN 12/06/20 Ibuprofen (IBUPROFEN) 600 Mg Tablet 600 MG PO TID PRN PRN for PAIN, #20 TAB 0 Refills Prov: SARA SERRANO APRN 12/06/20 Hydrocodone Bit/Acetaminophen (HYDROCODONE-APAP 5-325 ) 1 Each Tablet 1 TAB PO PRN Q6HRS PRN for PAIN, #6 TAB 0 Refills Prov: SARA SERRANO APRN 12/06/20 Problem Qualifiers Primary Impression: Sciatica Laterality: right Qualified Codes: M54.31 - Sciatica, right side SARA SERRANO APRN Dec 06, 2020 21:55 MEREDITH ESTEVES MD Dec 07, 2020 00:12
[2020-12-06] MEDS ORDERED: KETOROLAC 60 MG/2 ML VIAL. IM ONE (22:00)
[2020-12-06] MEDS ORDERED: methylPREDNISolone ACETATE 80 MG/ML VIAL. IM ONE (22:00)
[2020-12-06] MEDS ORDERED: HYDR-2155 PO (22:22)
[2020-12-06] MEDS ORDERED: PRED20TA PO (22:22)
[2020-12-06] MEDS ORDERED: IBUP600T16 PO (22:22)
[2020-12-06] MEDS ORDERED: CYCL-331 PO (22:22)
[2020-12-06 22:30] VITALS: BP 141/86
== END 2020-12-06 22:30 | disposition home or self-care (01) ==
LOC: ER 18:18
DX: M54.41 Lumbago with sciatica, right side (principal); J44.9 Chronic obstructive pulmonary disease, unspecified; K21.9 Gastro-esophageal reflux disease without esophagitis; Z90.89 Acquired absence of other organs
CPT/HCPCS: 81001; 96372; 99284; J1040; J1885